=== PATIENT | male | born 1945 | race Caucasian/White ===

== ENCOUNTER → 2016-12-11 | Outpatient (CLI) | payer OTHER ==
[~2016-12-11] MED LIST: CALCTAB5 PO; CHOL2000 PO; CLR10 PO; LUTE15CA PO; METF750T PO; MULT-506 PO; OMEG10007 PO; OXYC1TAB3 PO; PRLSR20 PO
--- NOTE | 2016-12-11 10:27 | DIAGNOSTIC IMAGING REPORT ---
TWO VIEW CHEST CLINICAL HISTORY: Cough. FINDINGS: PA and lateral chest radiographs are compared to study dated 07/01/2014. The heart is enlarged. The pulmonary vasculature is noncongested. The lungs and pleural spaces are clear. There is no pneumothorax. The bony thorax appears intact. Degenerative changes noted throughout the thoracic spine. IMPRESSION: Cardiac enlargement with no active disease in the chest. Electronically signed by: Malik Ellsworth M.D. 12/11/2016 10:25 AM Dictated Date/Time: 12/11/2016 10:25 AM
== END | disposition home or self-care (01) ==
LOC: C.RAD1850 10:04
PROVIDERS: ATTEND Family Medicine
DX: R05 Cough (principal); I51.7 Cardiomegaly

== ENCOUNTER → 2016-12-19 | Outpatient (CLI) | payer OTHER ==
[2016-12-19 09:44] LABS: ALT/SGPT 27 U/L (12-78); AST/SGOT 13 U/L (15-37); BLOOD UREA NITROGEN 20 mg/dl (7-18); BUN/CREATININE RATIO 18.4 (10-20); CARBON DIOXIDE 32 mmol/L (21-32); CHLORIDE 106 mmol/L (98-107); GLUCOSE 95 mg/dl (70-99); POTASSIUM 4.4 mmol/L (3.5-5.1); SODIUM 141 mmol/L (136-145)
[2016-12-19 09:46] LABS: ALKALINE PHOSPHATASE 72 U/L (45-117); CHOLESTEROL 175 mg/dl (0-200); CHOLESTEROL/HDL RATIO 3.1; HDL CHOLESTEROL 56 mg/dl; LDL CHOLESTEROL CALCULATED 88 mg/dl; TRIGLYCERIDES 156 mg/dl (0-150); VERY LOW DENSITY LIPOPROT CALC 31 mg/dl
[2016-12-19 10:13] LABS: ESTIMATED AVERAGE GLUCOSE 126 mg/dl; HA1C FLAG Normal (Normal)
== END | disposition home or self-care (01) ==
LOC: C.LAB1850 07:26
PROVIDERS: ATTEND Internal Medicine
DX: N40.1 Benign prostatic hyperplasia with lower urinary tract symptoms (principal); E11.9 Type 2 diabetes mellitus without complications; Z11.59 Encounter for screening for other viral diseases

== ENCOUNTER → 2017-06-23 | Outpatient (CLI) | payer OTHER ==
[~2017-06-23] MED LIST changes: -OXYC1TAB3 PO
[2017-06-23 16:44] LABS: ALT/SGPT 25 U/L (12-78); BLOOD UREA NITROGEN 22 mg/dl (7-18); BUN/CREATININE RATIO 21.7 (10-20); CALCIUM 9.7 mg/dl (8.5-10.1); CARBON DIOXIDE 32 mmol/L (21-32); CHLORIDE 104 mmol/L (98-107); GLUCOSE 86 mg/dl (70-99); POTASSIUM 4.3 mmol/L (3.5-5.1); SODIUM 140 mmol/L (136-145)
[2017-06-23 16:54] LABS: ALB/GLOB RATIO 1.2 (0.9-2); ALKALINE PHOSPHATASE 69 U/L (45-117); AST/SGOT 20 U/L (15-37)
[2017-06-23 16:56] LABS: RATIO 10.5 mcg/mg (0-30.0)
[2017-06-24 07:11] LABS: ESTIMATED AVERAGE GLUCOSE 123 mg/dl; HA1C FLAG Normal (Normal)
--- NOTE | 2017-07-08 08:43 | CODING QUERY MEDICAL NECESSITY ---
CQSUPPORTING DIAGNOSIS NEEDED A supporting diagnosis is required for the test/procedure performed on this patient in order for us to be reimbursed by the patient's insurance. Please provide a supporting diagnosis for the following test/procedure listed below next to the test name along with your signature. *If there is no additional diagnosis for this patient that would support the following test/procedure please document that below next to the test/procedure. Test(s)/Procedure(s) that require a supporting diagnosis: DOS 06/23/17 VITAMIN B12 TEST Provider Signature: Date: Thank you Rosie Beltrán Health Information Management Once completed, please kindly fax back to [phone] For questions please call [phone]
== END | disposition home or self-care (01) ==
LOC: C.LAB1850 15:34
PROVIDERS: ATTEND Internal Medicine
DX: E11.9 Type 2 diabetes mellitus without complications (principal); E55.9 Vitamin D deficiency, unspecified; Z13.29 Encounter for screening for other suspected endocrine disorder

== ENCOUNTER → 2017-09-08 | Outpatient (CLI) | payer OTHER | END | disposition home or self-care (01) | LOC: C.MAMM 11:11 | PROVIDERS: ATTEND Internal Medicine | DX: M85.80 Other specified disorders of bone density and structure, unspecified site (principal) ==

== ENCOUNTER → 2017-12-04 | Outpatient (CLI) | payer OTHER ==
[2017-12-04 09:55] LABS: BLOOD UREA NITROGEN 23 mg/dl (7-18); CALCIUM 9.3 mg/dl (8.5-10.1); CARBON DIOXIDE 31 mmol/L (21-32); CHOLESTEROL 193 mg/dl (0-200); CREATININE 1.08 mg/dl (0.60-1.40); GLUCOSE 101 mg/dl (70-99); HEMOGLOBIN A1C 5.8 % (4.5-5.6); POTASSIUM 4.3 mmol/L (3.5-5.1); SODIUM 140 mmol/L (136-145)
[2017-12-04 10:00] LABS: LDL CHOLESTEROL CALCULATED 115 mg/dl
== END | disposition home or self-care (01) ==
LOC: C.LAB1850 07:34
PROVIDERS: ATTEND Urology
DX: Z12.5 Encounter for screening for malignant neoplasm of prostate (principal); E11.9 Type 2 diabetes mellitus without complications

== ENCOUNTER 2019-01-11 20:20 | Observation (INO) ==
[2019-01-11] MEDS ORDERED: METOPROLOL TARTRATE 1 MG/ML VIAL IV STA (20:35)
[2019-01-11] MEDS ORDERED: ASPIRIN CHEW 324 MG PO STA (20:36)
[2019-01-11] MEDS ORDERED: GI COCKTAIL ED USE PO ONE (20:36)
--- NOTE | 2019-01-11 20:50 | XRay Report ---
XR chest 1V portable CLINICAL HISTORY: 73 years-old Male presenting with weakness. TECHNIQUE: Portable upright AP view of the chest was obtained. COMPARISON: 10/20/2018. FINDINGS: Atherosclerosis of the aortic arch. Cardiac silhouette top normal in size. Minimal basilar opacities. No pleural effusion or pneumothorax. Degenerative changes of the thoracic spine. Upper abdomen irina l. IMPRESSION: 1. Minimal basilar opacities likely atelectasis or scarring. 2. Top normal cardiac size. Electronically signed by: Gabino Winn M.D. 01/11/2019 8:48 PM
[2019-01-11] MEDS ORDERED: SODIUM CHLORIDE 0.9% 1000ML 500 ML IV ONE (20:59)
[2019-01-11 21:15] LABS: BUN Creatinine Ratio 18.4 (10-20); Blood Urea Nitrogen 24 mg/dl (7-18); Calcium 9.6 mg/dl (8.5-10.1); Carbon Dioxide 29 mmol/L (21-32); Chloride 107 mmol/L (98-107); Creatinine Clr Calc Pharmacy 53.5 ml/min; Est GFR (African American) 64.4; Est GFR (Non-African American) 55.5; Glucose 117 mg/dl (70-99); Magnesium 2.1 mg/dl (1.8-2.4); Potassium 3.8 mmol/L (3.5-5.1); Sodium 142 mmol/L (136-145)
[2019-01-11 21:19] LABS: Basophils # (auto) 0.03 K/uL (0-0.2); Basophils % (auto) 0.3 %; Eosinophils # (auto) 0.18 K/uL (0-0.5); Hematocrit (blood only) 45.3 % (42-52); Hemoglobin 15.4 g/dL (14.0-18.0); Immature Granulocytes # (auto) 0.01 K/uL (0.00-0.02); Immature Granulocytes % (auto) 0.1 %; Lymphocytes # (auto) 3.19 K/uL (1.2-3.4); Lymphocytes % (auto) 36.1 %; Mean Corpuscular Volume 88.5 fL (80-100); Mean Platelet Volume 10.3 fL (7.4-10.4); Monocytes # (auto) 0.93 K/uL (0.11-0.59); Monocytes % (auto) 10.5 %; Neutrophils # (auto) 4.49 K/uL (1.4-6.5); Platelet Count 247 K/uL (130-400); RDW Standard Deviation 42.1 fL (36.4-46.3); Red Blood Count 5.12 M/uL (4.7-6.1); White Blood Count 8.83 K/uL (4.8-10.8)
[2019-01-11 21:25] LABS: Alanine Aminotransferase 40 U/L (12-78); Albumin Globulin Ratio 1.2 (0.9-2); Alkaline Phosphatase 87 U/L (45-117); Aspartate Aminotransferase 23 U/L (15-37); Bilirubin,Total 0.3 mg/dl (0.2-1); Globulin 3.5 gm/dl (2.5-4.0); Total Protein 7.5 gm/dl (6.4-8.2); Troponin I < 0.015 ng/ml (0-0.045)
[2019-01-11 22:08] LABS: Partial Thromboplastin Ratio 0.9; Partial Thromboplastin Time 25.5 Seconds (21.0-31.0); Prothrombin Time 10.3 Seconds (9.0-12.0)
[2019-01-11 22:43] LABS: Appearance Urine Clear (Clear); Bilirubin Urine Negative (Negative); Blood Urine Negative (Negative); Color Urine Yellow; Glucose Urine UA Negative (Negative); Ketones Urine Negative (Negative); Leukocyte Esterase Urine Negative (Negative); Nitrite Urine Negative (Negative); Protein Urine Negative (Negative); Specific Gravity Urine 1.021 (1.000-1.030); Urobilinogen Urine Negative (Negative)
--- NOTE | 2019-01-11 22:59 | History & Physical Report ---
Date of Service January 11, 2019 Assessment & Plan (1) Chest pain: Patient with acute onset bandlike chest discomfort at 19:15 tonight. Troponin x 1 negative. EKG with rate controlled atrial flutter with non- specific ST changes which resolved with conversion to sinus rhythm. ?Symptomatic flutter vs GI discomfort -Observation to PCU, continuous cardiac monitoring -Trend cardiac enzymes x 3 sets -EKG PRN CP -Stress test in AM Present on Admission?: Yes (2) Atrial flutter: Patient with newly diagnosed atrial flutter. Presented to ER in rate controlled flutter which converted to sinus bradycardia after administration of Metoprolol 5mg IV x 1 dose. ?symptomatic arrhythmia leading to CP and dizziness. Patient reports that since diagnosis he has only had 1 or 2 episodes of flutter associated with mild to moderate symptoms. -Observation as above -Continue Metoprolol XL 50mg po daily -Continue anticoagulation with Eliquis -Consider Cardiology consultation vs outpatient followup (3) Diabetes: Well controlled on Metformin -Hold Metformin while inpatient -ISS -CC diet after stress testing (4) GERD (gastroesophageal reflux disease): Chronic. -Continue Omeprazole -Maalox PRN F/E/N - NSS at 80mL/hr while NPO, monitor electrolytes and replete as needed, NPO after midnight for stress test, advance diet after stress testing Ppx - Eliquis anticoagulation. continue home Omeprazole Code - Full per discussion with patient Dispo - Observation to PCU History of Present Illness Chief Complaint: chest pain Primary Care Provider: Yanique Jaimes MD Mr. Elliott is a pleasant 73yo male with history of DM, recently diagnosed atrial flutter in October 2018 on Eliquis and Toprol XL presenting with chest pain. Patient reports that at 19:15 this evening he was sitting and watching TV when he experienced onset of band-like chest discomfort across the upper chest. Discomfort described as a tightness, 6-7/10 in severity, coming in waves. Pain non-exertional/non-positional and non-pleuritic. Associated with palpitations and feeling flush as well as a tight feeling in his esophagus. Mild dizziness experienced upon arrival to the ER. Denies shortness of breath, diaphoresis. Denies nausea/vomiting/abdominal pain. No additional complaints at this time. Patient was administered a GI cocktail in the ER with some improvement in sympt oms. Discomfort now 2/10. Upon arrival to the ER he was found to be in atrial flutter with variable block, rate of [address] depressions noted in anterior/lateral leads and TWI in inferior leads. Patient was administered Metoprolol 5mg IV with conversion to NSR and resolution of EKG changes. Patient is active and independent. He walks daily and denies exertional CP, tightness or dyspnea. He reports ending his walk early today as his legs felt heavy. He has never had an FL. No history of stress testing in the past. He follows with Dr. Ma ER course: ASA 162mg, Maalox, Metoprolol 5mg IV, NSS Allergies Allergy/AdvReac Type Severity Reaction Status Date / Time bee venom protein (honey bee) Allergy Unknown . Verified 01/11/19 22:19 mold Allergy Unknown itchy Unverified 01/11/19 22:19 watery eyes Dust Allergy Unknown itcy Uncoded 01/11/19 22:19 watery eyes Home Medications Home Medications Medication Instructions Recorded Confirmed Type calcium carbonate [Calcium 500] 500 mg PO DAILY 10/20/18 01/11/19 History cholecalciferol (vitamin D3) 1,000 unit PO DAILY 10/20/18 01/11/19 History [Vitamin D3] loratadine [Claritin] 10 mg PO DAILY 10/20/18 01/11/19 History lutein 6 mg PO DAILY 10/20/18 01/11/19 History metformin 750 mg PO DAILY 10/20/18 01/11/19 History multivitamin 1 tab PO DAILY 10/20/18 01/11/19 History omega [id number]-fish oil [Fish Oil] 1 tab PO DAILY 10/20/18 01/11/19 History omeprazole 20 mg PO DAILY 10/20/18 01/11/19 History apixaban [Eliquis] 5 mg PO BID 01/11/19 01/11/19 History epinephrine [EpiPen] 0.3 mg IM UD PRN 01/11/19 01/11/19 History metoprolol succinate [Toprol XL] 50 mg PO DAILY 01/11/19 01/11/19 History Past Med/Surg History Medical History Diabetes (Chronic) Atrial flutter Surgical History S/P hernia repair S/P shoulder surgery Family History Other Diabetes Gallbladder disease Heart disease Social History Preferred Language: Syriac Current Living Situation: Spouse current occupational status: retired Feels Safe at Home: Yes Smoking Status: Never smoker Hx Alcohol Use: No Hx Substance Use: No Review of Systems All systems reviewed & are unremarkable except as noted in HPI & below Physical Exam Vital Signs (Past 24 Hours): Last Vital Signs Temp 36.4 C L 01/11/19 20:24 Pulse 53 L 01/11/19 21:59 Resp 18 01/11/19 21:59 BP 123/81 01/11/19 21:59 Pulse Ox 95 01/11/19 21:59 Physical Exam: General: patient resting comfortably, NAD, non-toxic in appearance, AA&O x 4 Skin: warm, dry, intact, no rashes or lesions HEENT: NC/AT, PERRL, EOMI, anicteric sclera, conjunctiva without injection, external ear normal to inspection and nontender, nares patent, moist mucus membranes, dentition intact, no oropharyngeal lesions, neck supple, trachea midline, no LAD, no thyromegaly, no JVD Heart: +S1/S2, regular, bradycardic, no m/r/g, no carotid bruits, no chest wall tenderness Lungs: equal air entry bilaterally, no rales/rhonchi/wheezes Abd: +BS, soft, NT/ND, no masses/organomegaly/ascites Ext: warm, 2+ pulses in UE/LE bilaterally, no clubbing/cyanosis or edema Neuro: nonfocal, patient AA&O x 4, speech intact, no facial droop, moving all extremities on command with equal strength 5/5 Results & Data Laboratory Results Lab Results 01/11/19 01/11/19 01/11/19 Range/Units 20:38 20:38 20:38 WBC 8.83 (4.8-10.8) K/uL RBC 5.12 (4.7-6.1) M/uL Hgb 15.4 (14.0-18.0) g/dL Hct 45.3 (42-52) % MCV 88.5 (80-100) fL MCH 30.1 (25-34) pg MCHC 34.0 (32-36) g/dL RDW Std Deviation 42.1 (36.4-46.3) fL RDW Coeff of Jeremy 13.0 (11.5-14.5) % Plt Count 247 (130-400) K/uL MPV 10.3 (7.4-10.4) fL Immature Gran % (Auto) 0.1 % Neut % (Auto) 51.0 % Lymph % (Auto) 36.1 % [place] % (Auto) 10.5 % Eos % (Auto) 2.0 % Baso % (Auto) 0.3 % Immature Gran # (Auto) 0.01 (0.00-0.02) K/uL Neut # (Auto) 4.49 (1.4-6.5) K/uL Lymph # (Auto) 3.19 (1.2-3.4) K/uL [place] # (Auto) 0.93 H (0.11-0.59) K/uL Eos # (Auto) 0.18 (0-0.5) K/uL Baso # (Auto) 0.03 (0-0.2) K/uL PT 10.3 (9.0-12.0) Seconds INR 1.0 (0.9-1.1) APTT 25.5 (21.0-31.0) Seconds PTT Ratio 0.9 Sodium 142 (136-145) mmol/L Potassium 3.8 (3.5-5.1) mmol/L Chloride 107 (98-107) mmol/L Carbon Dioxide 29 (21-32) mmol/L Anion Gap 6.0 (3-11) BUN 24 H (7-18) mg/dl Creatinine 1.28 (0.6-1.4) mg/dl Est Cr Clr Drug Dosing 53.5 ml/min Est GFR ( Amer) 64.4 Est GFR (Non-Af Amer) 55.5 BUN/Creatinine Ratio 18.4 (10-20) Glucose 117 H (70-99) mg/dl Calcium 9.6 (8.5-10.1) mg/dl Magnesium 2.1 (1.8-2.4) mg/dl Total Bilirubin 0.3 (0.2-1) mg/dl AST 23 (15-37) U/L ALT 40 (12-78) U/L Alkaline Phosphatase 87 (45-117) U/L Troponin I < 0.015 (0-0.045) ng/ml Total Protein 7.5 (6.4-8.2) gm/dl Albumin 4.0 (3.4-5.0) gm/dl Globulin 3.5 (2.5-4.0) gm/dl Albumin/Globulin Ratio 1.2 (0.9-2) TSH 1.160 (0.300-4.500) uIu/ml Urine Color Urine Appearance (Clear) Urine pH (4.5-7.5) Ur Specific [place] (1.000-1.030) Urine Protein (Negative) Urine Glucose (UA) (Negative) Urine Ketones (Negative) Urine Blood (Negative) Urine Nitrite (Negative) Urine Bilirubin (Negative) Urine Urobilinogen (Negative) Ur Leukocyte Esterase (Negative) 01/11/19 Range/Units 22:25 WBC (4.8-10.8) K/uL RBC (4.7-6.1) M/uL Hgb (14.0-18.0) g/dL Hct (42-52) % MCV (80-100) fL MCH (25-34) pg MCHC (32-36) g/dL RDW Std Deviation (36.4-46.3) fL RDW Coeff of Jeremy (11.5-14.5) % Plt Count (130-400) K/uL MPV (7.4-10.4) fL Immature Gran % (Auto) % Neut % (Auto) % Lymph % (Auto) % [place] % (Auto) % Eos % (Auto) % Baso % (Auto) % Immature Gran # (Auto) (0.00-0.02) K/uL Neut # (Auto) (1.4-6.5) K/uL Lymph # (Auto) (1.2-3.4) K/uL [place] # (Auto) (0.11-0.59) K/uL Eos # (Auto) (0-0.5) K/uL Baso # (Auto) (0-0.2) K/uL PT (9.0-12.0) Seconds INR (0.9-1.1) APTT (21.0-31.0) Seconds PTT Ratio Sodium (136-145) mmol/L Potassium (3.5-5.1) mmol/L Chloride (98-107) mmol/L Carbon Dioxide (21-32) mmol/L Anion Gap (3-11) BUN (7-18) mg/dl Creatinine (0.6-1.4) mg/dl Est Cr Clr Drug Dosing ml/min Est GFR ( Amer) Est GFR (Non-Af Amer) BUN/Creatinine Ratio (10-20) Glucose (70-99) mg/dl Calcium (8.5-10.1) mg/dl Magnesium (1.8-2.4) mg/dl Total Bilirubin (0.2-1) mg/dl AST (15-37) U/L ALT (12-78) U/L Alkaline Phosphatase (45-117) U/L Troponin I (0-0.045) ng/ml Total Protein (6.4-8.2) gm/dl Albumin (3.4-5.0) gm/dl Globulin (2.5-4.0) gm/dl Albumin/Globulin Ratio (0.9-2) TSH (0.300-4.500) uIu/ml Urine Color Yellow Urine Appearance Clear (Clear) Urine pH 6.0 (4.5-7.5) Ur Specific [place] 1.021 (1.000-1.030) Urine Protein Negative (Negative) Urine Glucose (UA) Negative (Negative) Urine Ketones Negative (Negative) Urine Blood Negative (Negative) Urine Nitrite Negative (Negative) Urine Bilirubin Negative (Negative) Urine Urobilinogen Negative (Negative) Ur Leukocyte Esterase Negative (Negative) Diagnostic Findings XR chest 1V portable CLINICAL HISTORY: 73 years-old Male presenting with weakness. TECHNIQUE: Portable upright AP view of the chest was obtained. COMPARISON: 10/20/2018. FINDINGS: Atherosclerosis of the aortic arch. Cardiac silhouette top normal in size. Minimal basilar opacities. No pleural effusion or pneumothorax. Degenerative changes of the thoracic spine. Upper abdomen normal. IMPRESSION: 1. Minimal basilar opacities likely atelectasis or scarring. 2. Top normal cardiac size. Electronically signed by: Gabino Winn M.D. 01/11/2019 8:48 PM Dictated: 01/11/192046 Transcribed: 01/11/192046 ECG Additional Comments: Atrial flutter with variable block, rate 89bpm, non- specific ST-T wave changes Sinus bradycardia, no evidence of acute ischemia Code Status & VTE Plan Code Status full VTE Prophylaxis Plan VTE Prophylaxis will be ordered: Yes Critical Care Time Critical Care Time: No (1) Chest pain Chest pain type: unspecified Qualified Code(s): R07.9 - Chest pain, unspecified (2) Atrial flutter Atrial flutter type: unspecified Qualified Code(s): I48.92 - Unspecified atrial flutter (3) Diabetes Diabetes mellitus type: type 2 Diabetes mellitus termination clerk insulin use: without termination clerk use Diabetes mellitus complication status: without complication Qualified Code(s): E11.9 - Type 2 diabetes mellitus without complications (4) GERD (gastroesophageal reflux disease) Esophagitis presence: esophagitis presence not specified Qualified Code(s): K21.9 - Gastro-esophageal reflux disease without esophagitis
[2019-01-11] MEDS ORDERED: GLUCAGON FOR INJ 1 MG VIAL SQ PRN (23:38)
[2019-01-11] MEDS ORDERED: ACETAMINOPHEN 325 MG TAB PO PRN (23:38)
[2019-01-11] MEDS ORDERED: DEXTROSE 50% 50 ML SYRINGE IV PRN (23:38)
[2019-01-11] MEDS ORDERED: GLUCOSE 10 TABS/TUBE PO PRN (23:38)
[2019-01-11] MEDS ORDERED: DOCUSATE SODIUM 100 MG CAP PO PRN (23:38)
[2019-01-11] MEDS ORDERED: ONDANSETRON INJ 2 MG/ML 2 ML VIAL IV PRN (23:38)
[2019-01-11] MEDS ORDERED: ALUMINUM/MAGNESIUM SUSP 30 ML UDC PO PRN (23:38)
[2019-01-11] MEDS ORDERED: GLUCOSE 40% GEL 15 GM TUBE PO PRN (23:38)
[2019-01-11] MEDS ORDERED: CARBOHYDRATES FOR HYPOGLYCEMIA PO PRN (23:38)
[2019-01-11] MEDS ORDERED: NITROGLYCERIN SL 0.4 MG/TAB TAB SL PRN (23:38)
[2019-01-11] MEDS ORDERED: POLYETHYLENE (MIRALAX) 17 GM PACK PO PRN (23:38)
[2019-01-11] MEDS ORDERED: SODIUM CHLORIDE 0.45 % 1,000 ML IV SCH (23:45)
[2019-01-11 23:57] LABS: Phosphorus 2.4 mg/dl (2.5-4.9)
--- NOTE | 2019-01-12 01:59 | Emergency Department Note ---
Entered by Malik Valentine acting as a scribe for Gerardo Fair DO History of Present Illness General Chief complaint: Chest Pain Stated complaint: CHEST PAIN Time Seen by Provider: 01/11/19 20:32 Source: patient and family History of Present Illness Provider complaint: Chest pain Onset (ago): hour(s) 1 Location: chest Pain Consistency: + now resolved Maximum Pain Intensity: 6 Current Pain Intensity: 6 Relieved By: + none Associated symptoms: + denies other symptoms (pain/swelling in legs and abdomen pain) Treatments prior to arrival: none The patient is a 73 year old male who presents to the Emergency Room with complaints of chest pain that began 1 hour ago. The patient states he has a history of atrial fibrillation flutter that was diagnosed 3 months ago. He notes that this is the second episode. He states that he was sitting, relaxing at home when the chest pain began. He adds that the pain was across his chest but has since subsided. The patient rates his pain as a 6/10. The patient notes that he currently takes Metoprolol and Eliquis, both of which were added 3 months ago when he had his first episode of A fib. The patient denies ever having a stress test. He also denies any past heart attacks. The patient denies pain/swelling in legs and abdomen pain. He adds that he does not take aspirin or NG. Home Medications Home Medications Medication Instructions Recorded Confirmed Type calcium carbonate [Calcium 500] 500 mg PO DAILY 10/20/18 01/11/19 History cholecalciferol (vitamin D3) 1,000 unit PO DAILY 10/20/18 01/11/19 History [Vitamin D3] loratadine [Claritin] 10 mg PO DAILY 10/20/18 01/11/19 History lutein 6 mg PO DAILY 10/20/18 01/11/19 History metformin 750 mg PO DAILY 10/20/18 01/11/19 History multivitamin 1 tab PO DAILY 10/20/18 01/11/19 History omega 2-eng-kcs-fish oil [Fish Oil] 1 tab PO DAILY 10/20/18 01/11/19 History omeprazole 20 mg PO DAILY 10/20/18 01/11/19 History apixaban [Eliquis] 5 mg PO BID 01/11/19 01/11/19 History epinephrine [EpiPen] 0.3 mg IM UD PRN 01/11/19 01/11/19 History metoprolol succinate [Toprol XL] 50 mg PO DAILY 01/11/19 01/11/19 History Allergies Allergy/AdvReac Type Severity Reaction Status Date / Time bee venom protein (honey bee) Allergy Unknown . Verified 01/11/19 22:19 mold Allergy Unknown itchy Unverified 01/11/19 22:19 watery eyes Dust Allergy Unknown itcy Uncoded 01/11/19 22:19 watery eyes Past Med/Surg History Medical History Diabetes (Chronic) Atrial flutter Surgical History S/P hernia repair S/P shoulder surgery Family History Other Diabetes Gallbladder disease Heart disease Social History Preferred Language: [place] Communication Ability: Effective Beliefs That Will Affect Care: None Current Living Situation: Spouse current occupational status: retired Other Information That Helps Us Care for You: No Feels Safe at Home: Yes Safety Concerns: Feels Safe At This Time Smoking Status: Former smoker Hx Alcohol Use: Yes Hx Substance Use: No Review of Systems See HPI for pertinent positives & negatives. and A total of 10 systems reviewed and were otherwise negative Physical Exam Vital Signs Vital Signs - 24 hr 01/11/19 20:24 01/11/19 20:48 01/11/19 21:59 Temperature 36.4 C L Temperature Source Oral Sepsis Recent Fever Within 48 Hours No Sepsis New/Unexplained Change in Mental Status No Sepsis Action Taken by Nursing No Action Required Pulse Rate 73 79 Pulse Rate [Right Finger] 53 L Pulse Rhythm [Right Finger] Regular Pulse Strength [Right Finger] Normal Respiratory Rate 16 18 Respiratory Effort / Characteristics Non-Labored Spontaneous Non-Labored Respiratory Depth Normal Normal Respiratory Pattern Regular Blood Pressure 145/85 H 128/89 Blood Pressure [Left Arm] 123/81 Blood Pressure Mean 105 Blood Pressure Mean [Left Arm] 95 Blood Pressure Position [Left Arm] Lying Pulse Oximetry 97 95 Oxygen Delivery Method Room Air Room Air 01/11/19 23:01 01/11/19 23:51 01/12/19 03:40 Temperature 37.0 C 36.9 C Temperature Source Oral Oral Sepsis Recent Fever Within 48 Hours Sepsis New/Unexplained Change in Mental Status Sepsis Action Taken by Nursing Pulse Rate Pulse Rate [Right Finger] 51 L 50 L 44 L Pulse Rhythm [Right Finger] Regular Pulse Strength [Right Finger] Normal Respiratory Rate 18 18 17 Respiratory Effort / Characteristics Non-Labored Spontaneous Respiratory Depth Normal Normal Respiratory Pattern Regular Blood Pressure Blood Pressure [Left Arm] 108/47 L 127/67 114/62 Blood Pressure Mean Blood Pressure Mean [Left Arm] 67 87 79 Blood Pressure Position [Left Arm] Lying Pulse Oximetry 98 95 95 Oxygen Delivery Method Room Air 01/12/19 07:13 01/12/19 08:00 01/12/19 11:57 Temperature 36.7 C 37.4 C Temperature Source Oral Oral Sepsis Recent Fever Within 48 Hours Sepsis New/Unexplained Change in Mental Status Sepsis Action Taken by Nursing Pulse Rate 44 L Pulse Rate [Right Finger] 44 L 48 L Pulse Rhythm [Right Finger] Pulse Strength [Right Finger] Respiratory Rate 18 18 Respiratory Effort / Characteristics Respiratory Depth Respiratory Pattern Blood Pressure Blood Pressure [Left Arm] 133/70 137/72 Blood Pressure Mean Blood Pressure Mean [Left Arm] 91 93 Blood Pressure Position [Left Arm] Lying Lying Pulse Oximetry 96 96 Oxygen Delivery Method Room Air Room Air GENERAL: Patient is awake, alert, and in no acute distress.Patient is resting comfortably and showing no signs of anxiety EYES: The conjunctivae are clear. The pupils are round and reactive. EARS, NOSE, MOUTH AND THROAT: The nose is without any evidence of any deformity. Mucous membranes are moist.Tongue is midline NECK: The neck is nontender and supple. RESPIRATORY: Normal respiratory effort is noted. There is no evidence of wheezing rhonchi or rales to auscultation. CARDIOVASCULAR: Regular rate and rhythm noted. There no murmurs rubs or gallops normal S1 normal S2 GASTROINTESTINAL: The abdomen is soft. Bowel sounds are present in all quadrants. Abdomen is nontender. MUSCULOSKELETAL/EXTREMITIES: There is no evidence of gross deformity. Full range of motion is noted in the hips and shoulders. SKIN: There is no obvious evidence of any rash. There are no petechiae, pallor or cyanosis noted. NEUROLOGIC: Patient is awake alert and oriented x3. Course 2032: The patient was evaluated in room A02, and a complete history and physical examination were performed. 2155: I reviewed the patient's case with Dr. Marquis-Hospitalist. She will evaluate the patient for further management. Administered Medications Apixaban (Eliquis) 5 mg PO BID SAFIA Stop: 02/11/19 08:59 Last Admin: 01/12/19 08:40 Dose: 5 mg Documented by: [id number] Calcium Carbonate (Os-[place]roy 500) 1,250 mg PO DAILY SAFIA Stop: 02/11/19 08:59 Last Admin: 01/12/19 08:40 Dose: 1,250 mg Documented by: [id number] Insulin Aspart (Novolog Flexpen) 0 units SC ACHS SAFIA Stop: 02/11/19 07:29 Last Admin: 01/12/19 06:06 Dose: Not Given Documented by: [id number] Cosigned by: [id number] Loratadine (Claritin) 10 mg PO DAILY SAFIA Stop: 02/11/19 08:59 Last Admin: 01/12/19 08:40 Dose: 10 mg Documented by: [id number] Metoprolol Succinate (Toprol Xl) 50 mg PO QAM SAFIA Stop: 02/11/19 08:59 Last Admin: 01/12/19 08:41 Dose: Not Given Documented by: [id number] Pantoprazole Sodium (Protonix) 40 mg PO DAILY SAFIA Stop: 02/11/19 08:59 Last Admin: 01/12/19 08:40 Dose: 40 mg Documented by: [id number] Vitamin D (Vitamin D3) 1,000 units PO DAILY SAFIA Stop: 02/11/19 08:59 Last Admin: 01/12/19 08:40 Dose: 1,000 units Documented by: [id number] Discontinued Medications Al Hydrox/Mg Hydrox/Simethicone () 1 dose PO ONE ONE Stop: 01/11/19 20:37 Last Admin: 01/11/19 20:48 Dose: 1 dose Documented by: [id number] Aspirin (Aspirin) 162 mg PO NOW STA Stop: 01/11/19 20:37 Last Admin: 01/11/19 20:47 Dose: 162 mg Documented by: [id number] Sodium Chloride (Nss 1000ml) 500 mls @ 999 mls/hr IV .Q31M ONE Stop: 01/11/19 21:29 Last Infusion: 01/11/19 21:59 Dose: 0 mls/hr Documented by: [id number] Admin: 01/11/19 21:00 Dose: 999 mls/hr Documented by: [id number] Sodium Chloride (1/2 Nss) 1,000 mls @ 80 mls/hr IV .[id number] SAFIA Stop: 01/12/19 12:14 Last Infusion: 01/12/19 10:52 Dose: 0 mls/hr Documented by: [id number] Admin: 01/12/19 00:00 Dose: 80 mls/hr Documented by: [id number] Metoprolol Tartrate (Lopressor) 5 mg IV NOW STA Stop: 01/11/19 20:36 Last Admin: 01/11/19 20:48 Dose: 5 mg Documented by: [id number] Medical Decision Making Differential Diagnosis Differential diagnosis: Etiologies such as cardiac ischemia, aortic dissection, pulmonary embolism, pneumonia, pneumothorax, musculoskeletal, infections, pericarditis, myocarditis, esophageal rupture, gastrointestinal, as well as others were entertained. Medical Records Attestation: I reviewed the patient's medical records. Home Medications Current Medication List: was personally reviewed by me Laboratory Data Attestation: I reviewed the patient's lab results. Result diagrams: 01/12/19 06:44 01/12/19 06:44 Lab Results 01/11/19 01/11/19 01/11/19 Range/Units 20:38 20:38 20:38 WBC 8.83 (4.8-10.8) K/uL RBC 5.12 (4.7-6.1) M/uL Hgb 15.4 (14.0-18.0) g/dL Hct 45.3 (42-52) % MCV 88.5 (80-100) fL MCH 30.1 (25-34) pg MCHC 34.0 (32-36) g/dL RDW Std Deviation 42.1 (36.4-46.3) fL RDW Coeff of Jeremy 13.0 (11.5-14.5) % Plt Count 247 (130-400) K/uL MPV 10.3 (7.4-10.4) fL Immature Gran % (Auto) 0.1 % Neut % (Auto) 51.0 % Lymph % (Auto) 36.1 % Isabella % (Auto) 10.5 % Eos % (Auto) 2.0 % Baso % (Auto) 0.3 % Immature Gran # (Auto) 0.01 (0.00-0.02) K/uL Neut # (Auto) 4.49 (1.4-6.5) K/uL Lymph # (Auto) 3.19 (1.2-3.4) K/uL Isabella # (Auto) 0.93 H (0.11-0.59) K/uL Eos # (Auto) 0.18 (0-0.5) K/uL Baso # (Auto) 0.03 (0-0.2) K/uL PT 10.3 (9.0-12.0) Seconds INR 1.0 (0.9-1.1) APTT 25.5 (21.0-31.0) Seconds PTT Ratio 0.9 Sodium 142 (136-145) mmol/L Potassium 3.8 (3.5-5.1) mmol/L Chloride 107 (98-107) mmol/L Carbon Dioxide 29 (21-32) mmol/L Anion Gap 6.0 (3-11) BUN 24 H (7-18) mg/dl Creatinine 1.28 (0.6-1.4) mg/dl Est Cr Clr Drug Dosing 53.5 ml/min Est GFR ( Amer) 64.4 Est GFR (Non-Af Amer) 55.5 BUN/Creatinine Ratio 18.4 (10-20) Glucose 117 H (70-99) mg/dl POC Glucose (70-99) Calcium 9.6 (8.5-10.1) mg/dl Phosphorus 2.4 L (2.5-4.9) mg/dl Magnesium 2.1 (1.8-2.4) mg/dl Total Bilirubin 0.3 (0.2-1) mg/dl AST 23 (15-37) U/L ALT 40 (12-78) U/L Alkaline Phosphatase 87 (45-117) U/L Troponin I < 0.015 (0-0.045) ng/ml Total Protein 7.5 (6.4-8.2) gm/dl Albumin 4.0 (3.4-5.0) gm/dl Globulin 3.5 (2.5-4.0) gm/dl Albumin/Globulin Ratio 1.2 (0.9-2) TSH 1.160 (0.300-4.500) uIu/ml Urine Color Urine Appearance (Clear) Urine pH (4.5-7.5) Ur Specific Stewart (1.000-1.030) Urine Protein (Negative) Urine Glucose (UA) (Negative) Urine Ketones (Negative) Urine Blood (Negative) Urine Nitrite (Negative) Urine Bilirubin (Negative) Urine Urobilinogen (Negative) Ur Leukocyte Esterase (Negative) 01/11/19 01/12/19 01/12/19 Range/Units 22:25 06:03 06:44 WBC 5.88 (4.8-10.8) K/uL RBC 4.63 L (4.7-6.1) M/uL Hgb 13.7 L (14.0-18.0) g/dL Hct 41.0 L (42-52) % MCV 88.6 (80-100) fL MCH 29.6 (25-34) pg MCHC 33.4 (32-36) g/dL RDW Std Deviation 43.2 (36.4-46.3) fL RDW Coeff of Jeremy 13.4 (11.5-14.5) % Plt Count 201 (130-400) K/uL MPV 9.7 (7.4-10.4) fL Immature Gran % (Auto) 0.3 % Neut % (Auto) 41.0 % Lymph % (Auto) 44.7 % Isabella % (Auto) 11.2 % Eos % (Auto) 2.6 % Baso % (Auto) 0.2 % Immature Gran # (Auto) 0.02 (0.00-0.02) K/uL Neut # (Auto) 2.41 (1.4-6.5) K/uL Lymph # (Auto) 2.63 (1.2-3.4) K/uL Isabella # (Auto) 0.66 H (0.11-0.59) K/uL Eos # (Auto) 0.15 (0-0.5) K/uL Baso # (Auto) 0.01 (0-0.2) K/uL PT (9.0-12.0) Seconds INR (0.9-1.1) APTT (21.0-31.0) Seconds PTT Ratio Sodium (136-145) mmol/L Potassium (3.5-5.1) mmol/L Chloride (98-107) mmol/L Carbon Dioxide (21-32) mmol/L Anion Gap (3-11) BUN (7-18) mg/dl Creatinine (0.6-1.4) mg/dl Est Cr Clr Drug Dosing ml/min Est GFR ( Amer) Est GFR (Non-Af Amer) BUN/Creatinine Ratio (10-20) Glucose (70-99) mg/dl POC Glucose 93 (70-99) Calcium (8.5-10.1) mg/dl Phosphorus (2.5-4.9) mg/dl Magnesium (1.8-2.4) mg/dl Total Bilirubin (0.2-1) mg/dl AST (15-37) U/L ALT (12-78) U/L Alkaline Phosphatase (45-117) U/L Troponin I (0-0.045) ng/ml Total Protein (6.4-8.2) gm/dl Albumin (3.4-5.0) gm/dl Globulin (2.5-4.0) gm/dl Albumin/Globulin Ratio (0.9-2) TSH (0.300-4.500) uIu/ml Urine Color Yellow Urine Appearance Clear (Clear) Urine pH 6.0 (4.5-7.5) Ur Specific Stewart 1.021 (1.000-1.030) Urine Protein Negative (Negative) Urine Glucose (UA) Negative (Negative) Urine Ketones Negative (Negative) Urine Blood Negative (Negative) Urine Nitrite Negative (Negative) Urine Bilirubin Negative (Negative) Urine Urobilinogen Negative (Negative) Ur Leukocyte Esterase Negative (Negative) 01/12/19 01/12/19 Range/Units 06:44 10:52 WBC (4.8-10.8) K/uL RBC (4.7-6.1) M/uL Hgb (14.0-18.0) g/dL Hct (42-52) % MCV (80-100) fL MCH (25-34) pg MCHC (32-36) g/dL RDW Std Deviation (36.4-46.3) fL RDW Coeff of Jeremy (11.5-14.5) % Plt Count (130-400) K/uL MPV (7.4-10.4) fL Immature Gran % (Auto) % Neut % (Auto) % Lymph % (Auto) % Isabella % (Auto) % Eos % (Auto) % Baso % (Auto) % Immature Gran # (Auto) (0.00-0.02) K/uL Neut # (Auto) (1.4-6.5) K/uL Lymph # (Auto) (1.2-3.4) K/uL Isabella # (Auto) (0.11-0.59) K/uL Eos # (Auto) (0-0.5) K/uL Baso # (Auto) (0-0.2) K/uL PT (9.0-12.0) Seconds INR (0.9-1.1) APTT (21.0-31.0) Seconds PTT Ratio Sodium 142 (136-145) mmol/L Potassium 4.4 D (3.5-5.1) mmol/L Chloride 111 H (98-107) mmol/L Carbon Dioxide 29 (21-32) mmol/L Anion Gap 2.0 L (3-11) BUN 21 H (7-18) mg/dl Creatinine 1.08 (0.6-1.4) mg/dl Est Cr Clr Drug Dosing 65.8 ml/min Est GFR ( Amer) 79.1 Est GFR (Non-Af Amer) 68.2 BUN/Creatinine Ratio 19.7 (10-20) Glucose 97 (70-99) mg/dl POC Glucose 100 H (70-99) Calcium 8.6 (8.5-10.1) mg/dl Phosphorus (2.5-4.9) mg/dl Magnesium (1.8-2.4) mg/dl Total Bilirubin (0.2-1) mg/dl AST (15-37) U/L ALT (12-78) U/L Alkaline Phosphatase (45-117) U/L Troponin I < 0.015 (0-0.045) ng/ml Total Protein (6.4-8.2) gm/dl Albumin (3.4-5.0) gm/dl Globulin (2.5-4.0) gm/dl Albumin/Globulin Ratio (0.9-2) TSH (0.300-4.500) uIu/ml Urine Color Urine Appearance (Clear) Urine pH (4.5-7.5) Ur Specific Stewart (1.000-1.030) Urine Protein (Negative) Urine Glucose (UA) (Negative) Urine Ketones (Negative) Urine Blood (Negative) Urine Nitrite (Negative) Urine Bilirubin (Negative) Urine Urobilinogen (Negative) Ur Leukocyte Esterase (Negative) Imaging Data Radiologist's Impression: Radiology results as stated below per my review and the radiologist's interpretation: XR chest 1V portable CLINICAL HISTORY: 73 years-old Male presenting with weakness. TECHNIQUE: Portable upright AP view of the chest was obtained. COMPARISON: 10/20/2018. FINDINGS: Atherosclerosis of the aortic arch. Cardiac silhouette top normal in size. Minimal basilar opacities. No pleural effusion or pneumothorax. Degenerative changes of the thoracic spine. Upper abdomen normal. IMPRESSION: 1. Minimal basilar opacities likely atelectasis or scarring. 2. Top normal cardiac size. Electronically signed by: Gabino Winn M.D. 01/11/2019 8:48 PM ECG Data Attestation: I personally reviewed and interpreted this ECG as follows: Indication: chest pain Rhythm: atrial flutter Findings: + ST depression (lateral); no PAC, no PVC and no ectopy Comparison ECG Date: from (10/20/18) Change: the following changes noted (all new) Additional Comments: Repeat EKG: NSR 65, PACs noted, resolution of previously noted ST depressions Blood Pressure Blood Pressure Findings: Normal blood pressure MDM Narrative The patient is a 73-year-old male who presented to the emergency department for an evaluation of chest pain. The patient also had atrial fibrillation upon arrival to the emergency department. He was very symptomatic with his atrial fibrillation and had ST segment abnormalities. I discussed the patient's laboratory and radiographic studies with him. He did take his oral anticoagulation therapy while in the emergency department. He was also treated with aspirin and Lopressor in the emergency department. On subsequent reevaluation he was in sinus rhythm and his ST segment abnormalities resolved. I discussed the patient's laboratory and radiographic studies with the on-call [facility] hospitalist group. They have agreed to evaluate the patient in the emergency department for further management and disposition. Impression & Plan Chest pain, Atrial flutter, Abnormal ECG Discharge Plan Visit Data *Final* Discharge Date/Time: 01/11/19 23:20 Chief Complaint: Chest Pain Stated Complaint: CHEST PAIN ED Provider: Gerardo Fair Discharge Problem: Chest pain, Atrial flutter, Abnormal ECG Patient Disposition: Admitted As Inpatient Discharge Instructions Interventions: ED Discharge Assessment Last Done: 01/11/19 23:20 Discharge Problem: Chest pain Qualifiers: Chest pain type: unspecified Qualified Code(s): R07.9 - Chest pain, unspecified Atrial flutter Qualifiers: Atrial flutter type: typical Qualified Code(s): I48.3 - Typical atrial flutter The scribe's documentation has been prepared under my direction and personally reviewed by me in its entirety. I confirm that the note above accurately reflects all work, treatment, procedures, and medical decision making performed by me.
[2019-01-12] MEDS: INSULIN ASPART 100 UNITS/ML 3 ML PEN SC SCH ×2 (06:06→13:32)
[2019-01-12 07:03] LABS: Basophils # (auto) 0.01 K/uL (0-0.2); Basophils % (auto) 0.2 %; Eosinophils # (auto) 0.15 K/uL (0-0.5); Eosinophils % (auto) 2.6 %; Hemoglobin 13.7 g/dL (14.0-18.0); Immature Granulocytes # (auto) 0.02 K/uL (0.00-0.02); Immature Granulocytes % (auto) 0.3 %; Lymphocytes # (auto) 2.63 K/uL (1.2-3.4); Lymphocytes % (auto) 44.7 %; Mean Corpuscular Hgb Conc 33.4 g/dL (32-36); Mean Corpuscular Volume 88.6 fL (80-100); Mean Platelet Volume 9.7 fL (7.4-10.4); Monocytes # (auto) 0.66 K/uL (0.11-0.59); Monocytes % (auto) 11.2 %; Neutrophils # (auto) 2.41 K/uL (1.4-6.5); Platelet Count 201 K/uL (130-400); RDW Coefficient of Variation 13.4 % (11.5-14.5); RDW Standard Deviation 43.2 fL (36.4-46.3); Red Blood Count 4.63 M/uL (4.7-6.1); White Blood Count 5.88 K/uL (4.8-10.8)
[2019-01-12 07:24] LABS: BUN Creatinine Ratio 19.7 (10-20); Blood Urea Nitrogen 21 mg/dl (7-18); Calcium 8.6 mg/dl (8.5-10.1); Carbon Dioxide 29 mmol/L (21-32); Chloride 111 mmol/L (98-107); Creatinine Clr Calc Pharmacy 65.8 ml/min; Est GFR (African American) 79.1; Est GFR (Non-African American) 68.2; Glucose 97 mg/dl (70-99); Potassium 4.4 mmol/L (3.5-5.1); Sodium 142 mmol/L (136-145)
[2019-01-12 07:27] LABS: Troponin I < 0.015 ng/ml (0-0.045)
[2019-01-12] MEDS ORDERED: PANTOprazole 40 MG TAB PO SCH (09:00)
[2019-01-12] MEDS ORDERED: CALCIUM CARBONATE 1250MG TAB PO SCH ×2 (09:00)
[2019-01-12] MEDS ORDERED: LORATADINE 10 MG TAB PO SCH (09:00)
[2019-01-12] MEDS ORDERED: METOPROLOL SUCC 50MG EXT REL TAB PO SCH (09:00)
[2019-01-12] MEDS ORDERED: CHOLECALCIFEROL 1,000 UNITS TAB PO SCH (09:00)
[2019-01-12] MEDS ORDERED: APIXABAN 5 MG TABLET PO SCH (09:00)
--- NOTE | 2019-01-12 18:37 | Discharge Summary ---
Date of Service January 12, 2019 Admission HPI Per Admitting Provider Mr. Elliott is a pleasant 73yo male with history of DM, recently diagnosed atrial flutter in October 2018 on Eliquis and Toprol XL presenting with chest pain. Patient reports that at 19:15 this evening he was sitting and watching TV when he experienced onset of band-like chest discomfort across the upper chest. Discomfort described as a tightness, 6-7/10 in severity, coming in waves. Pain non-exertional/non-positional and non-pleuritic. Associated with palpitations and feeling flush as well as a tight feeling in his esophagus. Mild dizziness experienced upon arrival to the ER. Denies shortness of breath, diaphoresis. Denies nausea/vomiting/abdominal pain. No additional complaints at this time. Patient was administered a GI cocktail in the ER with some improvement in symptoms. Discomfort now 2/10. Upon arrival to the ER he was found to be in atrial flutter with variable block, rate of [address] depressions noted in anterior/lateral leads and TWI in inferior leads. Patient was administered Metoprolol 5mg IV with conversion to NSR and resolution of EKG changes. Patient is active and independent. He walks daily and denies exertional CP, tightness or dyspnea. He reports ending his walk early today as his legs felt heavy. He has never had an ME. No history of stress testing in the past. He follows with Dr. Ma ER course: ASA 162mg, Maalox, Metoprolol 5mg IV, NSS Principal Diagnosis Chest pain; not due to cardiac cause Discharge Exam Constitutional WD/WN, vitals as above Eyes EOM intact bilaterally; no conjunctival abnormality ENMT external ear and nose normal, oropharynx normal Neck trachea midline, no thyromegaly normal visual inspection Respiratory normal respiratory effort, lungs clear to auscultation no respiratory distress Cardiovascular RRR, no murmur, no edema Gastrointestinal (Abdomen) Inspection/Auscultation: abdomen normal to inspection; abdomen not distended Musculoskeletal no cyanosis or clubbing, extremities motor strength 5/5 Skin no rashes, warm and dry Neurologic moves all extremities and awake Psychiatric Orientation: alert, oriented to person and cooperative Discharge Data Allergies Allergy/AdvReac Type Severity Reaction Status Date / Time bee venom protein (honey bee) Allergy Unknown . Verified 01/11/19 22:19 mold Allergy Unknown itchy Unverified 01/11/19 22:19 watery eyes Dust Allergy Unknown itcy Uncoded 01/11/19 22:19 watery eyes Consultations 01/11/19 21:50 ED Decision to Admit Stat Hospital Course (1) Chest pain: Patient with acute onset bandlike chest discomfort at 19:15 on 01/11. - Troponins all negative. - EKG showed rate-controlled atrial flutter with non-specific ST changes which resolved with conversion to sinus rhythm. - Stress echo on 01/12 was negative for ischemia. Per cardiology, his heart rate was not met, but he did very well and had high exercise tolerance. - Possibly symptomatic atrial flutter (even with appropriate rate control). - Follow up with Dr. Arias in 1 week. Consider rythm control if these episodes continue. (2) Atrial flutter: Patient with newly diagnosed atrial flutter. Presented to ER in rate controlled flutter which converted to sinus bradycardia after administration of Metoprolol 5mg IV x 1 dose. Possible symptomatic arrhythmia leading to CP and dizziness. Patient reports that since diagnosis he has only had 1 or 2 episodes of flutter associated with mild to moderate symptoms. - As above (3) Diabetes: Well controlled on Metformin -Hold Metformin while inpatient -ISS -CC diet after stress testing (4) GERD (gastroesophageal reflux disease): Chronic. -Continue Omeprazole -Maalox PRN Total Time Total Time Spent Total Time Spent (In Minutes): 40 Total Time Includes: Examination of the Patient, Discharge Planning and Medication Reconciliation Discharge Plan Discharge Items Patient Disposition: Home - Self-Care Reason For Visit: CHEST PAIN Discharge Diagnosis: Chest pain; unlikely cardiac chest pain Discharge Goals: Decrease discomfort Activity: Resume your previous activity Non-emergency contact: Primary Care Provider and Machine Pecan Gatherer Call non-emergency contact if: you have any medication questions and your symptoms worsen Follow-up/Referrals: Toby Arias MD [Physician] - (Please see Dr. Arias or Mr. Beauchamp in the office in 1-2 weeks for follow up.) Yanique Jaimes MD [Primary Care Provider] - 01/18/19 11:40 am (Please, follow up with Dr. Hernandez on ThursdayJanuary 18 at 11:40 am. *If you need to change this appointment, call the office at [phone].) Diet: Regular Addtl Provider Instructions: Mr. Elliott, You were admitted to the hospital with chest pain. We will concerned that the chest pain represented lack of blood flow to the heart, and we did testing to check on the health of your heart. We tested a lab called a "troponin" which tells us if your heart has lack of blood flow or getting damaged. All your troponins were negative (normal) which means you did not have a heart attack. You underwent a stress test while in the hospital, and this was normal as well. This tells us that you are at low risk for having a heart attack in the next month or year. Your chest pain may be due to a number of other factors, including problems with her esophagus, or even musculoskeletal pain from your ribs. Please follow-up with Dr. Arias's office in 1-2 weeks to determine if there is any further cardiac testing you need to undergo. Please follow-up with your PCP in the next week to determine if there is any further GI workup that needs to be done. Please contact your PCP, the accounting software specialist, or come straight to the emergency room if you have any further chest pain, shortness of breath, lightheadedness, dizziness, or other concerning symptoms. Prescriptions: Continued multivitamin Tablet 1 tab PO DAILY RF: 0 calcium carbonate [Calcium 500] 500 mg calcium (1,250 mg) Tablet 500 mg PO DAILY RF: 0 lutein 6 mg Capsule 6 mg PO DAILY RF: 0 omeprazole 20 mg Capsule,Delayed Release(Dr/Ec) 20 mg PO DAILY RF: 0 loratadine [Claritin] 10 mg Tablet 10 mg PO DAILY RF: 0 cholecalciferol (vitamin D3) [Vitamin D3] 1,000 unit Capsule 1,000 unit PO DAILY RF: 0 metformin 750 mg tablet extended release 24 hr 750 mg PO DAILY RF: 0 omega [id number] oil [Fish Oil] 1,000 mg (120 mg-180 mg) Capsule 1 tab PO DAILY RF: 0 metoprolol succinate [Toprol XL] 50 mg tablet extended release 24 hr 50 mg PO DAILY RF: 0 Eliquis 5 mg tablet 5 mg PO BID RF: 0 epinephrine [EpiPen] 0.3 mg/0.3 mL Auto-Injector 0.3 mg IM UD PRN (Reason: Allergic Reaction) RF: 0 Stand-Alone Forms: Call Back Authorization, [facility] Discharge Orders: Discharge Order (Routine); Ordered 01/12/19 Ordered By: Shon Webb Admission Data Admit Date/Time: 01/11/19 22:35 Attending Provider: Shon Webb Admit Provider: Juju Marquis Primary Care Provider: Yanique Jaimes V. Other Providers: Shon Webb Service: Telemetry Other Interventions: Discharge Summary Assessment (RN) Last Done: 01/12/19 14:29 DC Date/Time DO NOT enter until pt leaves facility: 01/12/19 14:53
== END 2019-01-12 14:53 | disposition home or self-care (01) ==
LOC: ED 20:20 → 2S 20:20 → SUATTDRO 22:35 → 2S 23:20

== ENCOUNTER 2019-08-16 10:57 | Observation (INO) ==
[2019-08-16] MEDS ORDERED: fentaNYL citrate 100 MCG/2 ML VIAL ONE ×2 (12:36→13:58)
[2019-08-16] MEDS ORDERED: MIDAZOLAM HCL 5 MG/ML 1 ML VIAL ONE (12:36)
--- NOTE | 2019-08-16 12:57 | History & Physical Bridge Note ---
Date of Service August 16, 2019 History & Physical Bridge Note I have examined the patient, reviewed the History & Physical and in the interval since the performance of the History & Physical I have noted the following changes of clinical significance: After his aborted ablation procedure July 28, 2019 when he presented with neurologic symptoms he had a MRI of the brain and a CT angiogram of the neck and head, all of which were negative for stroke or significant atherosclerosis. The symptoms are still present to minor extent but have improved. He has had one other episode of palpitations (not documented) since that time. I reviewed the indications, procedure, risks and alternatives of electrophysiology study and flutter ablation with him and his and they understand and he agrees to proceed. Consent obtained. I also discussed sedation with him and he is agreeable. Consent obtained.
--- NOTE | 2019-08-16 12:58 | Pre Anesthesia Assessment ---
Date of Service August 16, 2019 Pre Sedation Assessment Vital Signs Temp Pulse Resp BP Pulse Ox 08/16/19 11:09 36.5 C 50 L 16 161/68 H 98 Cardiovascular RRR, no murmur, no edema Respiratory normal respiratory effort, lungs clear to auscultation Pre-Sedation Airway Assessment Smoking Status: Former smoker Hx Sleep Apnea: No Hx Difficult Intubation: No Short, Thick Neck: No Thyromental Distance: > or= 3.5 Finger Breadths Oral Cavity: + WNL Mallampati Class: I ASA: ASA3 NPO Status Date of Last Intake of Fluids: 08/15/19 Time of Last Intake of Fluids: 22:30 Date of Last Intake of Solid Food: 08/15/19 Time of Last Intake of Solid Foods: 22:30 Procedure Planning Contraindications for Sedation: none Current Medications Reviewed: Yes Notes The planned sedation has been discussed with the patient. Informed Consent was obtained. I have identified the patient, determined the appropriateness of sedation and have assessed the patient immediately prior to the procedure. All medicine(s) and interventions are by my order.
--- NOTE | 2019-08-16 15:00 | Post Operative Brief Note ---
Cardiology Brief Post Op Date of Surgery August 16, 2019 Pre & Post Diagnosis Operation Date: 08/16/19 12:00 Preop diagnosis: Typical atrial flutter Postoperative diagnosis: Same Procedure Electrophysiologic study including coronary sinus (left atrial) pacing 3D mapping for atrial flutter Ablation of atrial flutter with creation of a tricuspid-caval isthmus line Lead Systems Engineer Toby Arias MD Pipe Coremaker None Estimated Blood Loss 10 Findings Consistent with Post-Op Diagnosis Successful creation of a tricuspid caval isthmus line with no evidence of electrical conduction across the line at the termination of the procedure. Anesthesia Type Local Complications none Disposition Accompanied Patient To Recovery: Yes Disposition: [place] [facility] [place] Charge Electrophysiology Procedure 1: Electrophysiology: Comprehensive EP Evaluation L Atrial pacing Procedure 2: Electrophysiology: EP 3D Mapping Procedure 3: Electrophysiology: EP Comprehensive Eval w/ablation of AV pathway (Ablation of atrial flutter with creation of a tricuspid-caval isthmus line)
[2019-08-16] MEDS ORDERED: ACETAMINOPHEN 325 MG TAB PO PRN (15:04)
[2019-08-16] MEDS ORDERED: KETOROLAC TROMETHAMINE 10 MG TABLET PO PRN (15:04)
--- NOTE | 2019-08-16 15:27 | Operative Report ---
PG Post Operative Report Pre & Post Diagnosis Operation Date: 08/16/19 12:00 <No data on this case meets the specified criteria> I identified the patient and participated in the time-out.: Yes Procedure Operation Date: 08/16/19 12:00 Actual Procedures p EPS + Ablation for SVT Flutter - Toby Arias MD s 3D Mapping (Carto) - Toby Arias MD Surgeon Toby Arias MD [employer] None Estimated Blood Loss 10 Findings Consistent with Post-Op Diagnosis Specimens None Anesthesia Type Local Complications none Disposition Accompanied Patient To Recovery: Yes Disposition: PCU Description of Procedure The patient was brought to the electrophysiology laboratory in sinus rhythm. He was identified in the lab, he was connected to the recording apparatus including the 3D mapping system. He was sedated and the right groin was anesthetized with lidocaine local anesthetic. A 7 Rwandan introducer, a 6 Rwandan introducer and a SR 0 ablation sheath were placed in the right femoral vein. A quadripolar catheter was advanced into the coronary sinus, another quadripolar catheter was placed in the right ventricular apex and an 8 mm ablation catheter was advanced to position at the AV junction. Baseline measurements were performed. Intervals across the tricuspid isthmus were measured for future comparison, intervals were measured from the coronary sinus catheter to the ablation catheter located along the tricuspid annulus on the right side of the future ablation line. Measurements and rate in both directions, from the coronary sinus to the ablation catheter the interval was 99 ms, from the ablation catheter to the coronary sinus catheter the interval was 94 ms indicating good bidirectional conduction across the isthmus. The tricuspid isthmus was then mapped for anatomic locations, and ablation was performed using a thermistor tipped 8 mm catheter. 2 ablation lines were performed for a total of 908 seconds (about 15 minutes). Based on electrogram and temperature data it appeared to be successful. Measurements were again taken from the coronary sinus to the ablation catheter repositioned on the right side of the tricuspid isthmus line. Measurements were made immediately after creation of this line and half an hour later with no significant difference. At the 1/2-hour post ablation time the time from the coronary sinus to the ablation catheter was 172 ms and from the ablation catheter to the coronary sinus was 172 ms. Electrophysiologic measurements were also performed during the waiting period after the ablation. AV block occurred at an atrial paced cycle length of 350 ms, the AV patrick ERP at 600 ms was 300 ms, the VA block occurred at a ventricular paced cycle length of 500 ms. The AH interval was 83 ms and HV interval 50 ms. The catheters were removed and hemostasis obtained by firm pressure at the puncture site. He tolerated the procedure well, there were no complications. I attest to the content of the Intraoperative Record and any orders documented therein. Any exceptions are noted below.
--- NOTE | 2019-08-16 16:21 | Post Anesthesia Assessment ---
Date of Service August 16, 2019 Post Sedation Assessment Vital Signs Temp Pulse Resp BP Pulse Ox 08/16/19 15:49 36.4 C L 52 L 16 118/71 98 08/16/19 15:25 47 L 16 114/62 95 08/16/19 15:20 48 L 16 117/63 94 08/16/19 15:15 36.5 C 47 L 16 94/74 L 96 08/16/19 15:10 36.5 C 47 L 16 94/74 L 98 08/16/19 11:09 36.5 C 50 L 16 161/68 H 98 Recovery Score Activity: Moves 4 extremities Respiration: Deep Breath/Cough Circulation: +/-20% PreAnes Value Consciousness: Fully Awake Oxygen Saturation: > 92% On Room Air Post Anesthesia Score: 10 Discharge Sedation Level of Care: Fast Track Phase II Post Sedation Plan On clinical assessment, the patient appears to have tolerated the sedation without complications. Patient is recovering as anticipated. Patient will continue to be monitored by nursing and may be discharged when sedation discharge criteria are met per below protocol. Upon Completions of procedure and additional 15 minutes continue every 5 minute vital signs and the P.A.R. score; then discharge to a Phase I or Fast Track to Phase II per the following guidelines: * Discharge Patient to appropriate Phase II area if PAR is 8 or greater or ret urn to pre- procedure baseline. The post - procedure orders will be as directed. * If PAR score is less than 8 or not return to pre-procedure baseline then patient will follow Phase I monitoring till PAR is reached for Phase II. The Phase I may be done in procedure room or may call to secure a Phase I area. * If naloxone or flumazenil are used for reversal, hold in Phase I for continued monitoring from when last reversal dose was given for a minimum of 60 minutes or longer pending the nurse and/or physician discretion of patient condition before discharge to Phase II. Please call the Sedation Physician to re-evaluate and complete post-note for discharge to Phase II area. Do NOT discharge from procedure sedation or Phase 1 until post- sedation evaluation note is complete by procedure /sedation MD Sedation Discharge Instructions to be given to the patient at discharge to home.
[2019-08-16] MEDS ORDERED: Nursing to Pharmacy Communication ONE (16:50)
[2019-08-17] MEDS ORDERED: CHOLECALCIFEROL 1,000 UNITS TAB PO SCH (09:00)
[2019-08-17] MEDS ORDERED: CALCIUM CARBONATE 1250MG TAB PO SCH ×2 (09:00)
[2019-08-17] MEDS ORDERED: LORATADINE 10 MG TAB PO SCH (09:00)
[2019-08-17] MEDS ORDERED: MULTIVITAMIN TAB PO SCH (09:00)
[2019-08-17] MEDS ORDERED: METFORMIN HCL ER 500 MG TABCR PO SCH (09:00)
[2019-08-17] MEDS ORDERED: OMEGA-3 (PURIFIED FISH OIL) 1 GM CAP PO SCH (09:00)
[2019-08-17] MEDS ORDERED: PANTOprazole 40 MG TAB PO SCH (09:00)
[2019-08-17] MEDS ORDERED: NON-FORMULARY MEDICATION (Lutein 6 MG) PO SCH (09:00)
--- NOTE | 2019-08-17 09:42 | Cardiology Progress Note ---
Date of Service August 17, 2019 Assessment & Plan (1) Atrial flutter, paroxysmal: He is doing well following flutter ablation, his catheter insertion site in the right groin looks good, his electrocardiogram looks good and he has had no abnormalities on telemetry. He is stable for discharge. I will restart Eliquis this evening, I am going to discontinue his metoprolol to help with his bradycardia. Subjective He is feeling well today, he has no chest discomfort, no difficulty with exertion and no right groin discomfort. Physical Exam Physical Exam: Constitutional: Alert, cooperative and in no distress. Pulmonary: Clear to auscultation bilaterally. Cardiac: Regular slightly slow rhythm with no murmur, gallop or rub. Abdomen: Soft, nontender with normal bowel sounds. Extremities: No edema. Skin: No rash, ecchymoses or petechiae. Right groin: Slight bleeding on the dressing, appears predominantly dried. No active bleeding. No hematoma. Results & Data Vital Signs (Past 12 Hours) Vital Signs Temp Pulse Pulse Resp BP Pulse Ox 08/17/19 07:48 36.6 C 56 L 18 116/77 95 08/17/19 07:30 50 L 08/17/19 03:21 36.9 C 48 L 18 116/67 97 08/16/19 23:10 36.9 C 50 L 18 116/62 97 Diagnostic Findings Telemetry: Sinus bradycardia, slight increase in heart rate since yesterday. No atrial arrhythmias of significance. Postop EKG, sinus bradycardia with normal ID interval. PG Care Time/CCT Total # of Minutes Spent Total Time Spent with Patient: Total time spent is greater than 50% in coordination of care (as documented) at patient's floor/unit and/or counseling patient:
--- NOTE | 2019-08-17 09:48 | Discharge Summary ---
Date of Service August 17, 2019 Admission HPI Per Admitting Provider This is a 74-year-old male with documented typical atrial flutter, he has sinus node dysfunction and bradycardia on rate controlling medications. He has had recurrence and therefore flutter ablation was performed yesterday. Atrial fibrillation has not been identified although it is possible as he does have paroxysmal episodes which have not all been recorded. Admission Exam (Per Admitting) [facility] Mallampati Class: I Respiratory normal respiratory effort, lungs clear to auscultation Cardiovascular RRR, no murmur, no edema Discharge Data Procedures Performed Operation Date: 08/16/19 12:00 Actual Procedures p EPS + Ablation for SVT Flutter - Toby Arias MD s 3D Mapping (Carto) - Toby Arias MD Hospital Course (1) Atrial flutter, paroxysmal: He underwent successful creation of tricuspid to inferior vena caval line of electrical block on August 16, 2019, this was done without complication with good results. Atrial flutter was not induced. He is doing well following flutter ablation, his catheter insertion site in the right groin looks good, his electrocardiogram looks good and he has had no abnormalities on telemetry. He is stable for discharge. I will restart Eliquis this evening, I am going to discontinue his metoprolol to help with his bradycardia.
== END 2019-08-17 10:22 | disposition home or self-care (01) ==
LOC: EP 10:57 → 2S 10:57

== ENCOUNTER 2019-08-19 23:13 | Inpatient (IN) ==
[2019-08-19] MEDS ORDERED: SODIUM CHLORIDE 0.9% 1000ML 1,000 ML IV ONE (23:28)
[2019-08-19] MEDS ORDERED: METOPROLOL TARTRATE 1 MG/ML VIAL IV STA (23:28)
[2019-08-19 23:48] LABS: Basophils # (auto) 0.01 K/uL (0-0.2); Basophils % (auto) 0.1 %; Eosinophils # (auto) 0.16 K/uL (0-0.5); Eosinophils % (auto) 2.2 %; Hematocrit (blood only) 46.8 % (42-52); Immature Granulocytes # (auto) 0.01 K/uL (0.00-0.02); Immature Granulocytes % (auto) 0.1 %; Lymphocytes # (auto) 3.05 K/uL (1.2-3.4); Mean Corpuscular Hemoglobin 30.2 pg (25-34); Mean Corpuscular Hgb Conc 34.2 g/dL (32-36); Mean Corpuscular Volume 88.5 fL (80-100); Mean Platelet Volume 9.9 fL (7.4-10.4); Monocytes # (auto) 0.83 K/uL (0.11-0.59); Monocytes % (auto) 11.2 %; Neutrophils # (auto) 3.37 K/uL (1.4-6.5); Neutrophils % (auto) 45.4 %; Platelet Count 232 K/uL (130-400); RDW Coefficient of Variation 13.1 % (11.5-14.5); RDW Standard Deviation 42.5 fL (36.4-46.3); Red Blood Count 5.29 M/uL (4.7-6.1); White Blood Count 7.43 K/uL (4.8-10.8)
[2019-08-20] LABS: Partial Thromboplastin Time 25.8 Seconds (21.0-31.0); Prothrombin Time 9.9 Seconds (9.0-12.0)
[2019-08-20 00:07] LABS: BUN Creatinine Ratio 14.6 (10-20); Calcium 9.9 mg/dl (8.5-10.1); Creatinine Clr Calc Pharmacy 63.1 ml/min; Est GFR (African American) 75.9; Est GFR (Non-African American) 65.5
[2019-08-20 00:23] LABS: Thyroid Stimulating Hormone 2.38 uIu/ml (0.300-4.500); Troponin I 0.064 ng/ml (0-0.045)
[2019-08-20] MEDS ORDERED: ASPIRIN 81 MG CHEW PO STA (00:36)
[2019-08-20] MEDS ORDERED: ONDANSETRON INJ 2 MG/ML 2 ML VIAL IV PRN (02:42)
[2019-08-20] MEDS: NSS + 20MEQ KCL 20 MEQ/1,000 ML BAG IV SCH ×2 (03:26→14:11)
--- NOTE | 2019-08-20 05:47 | History & Physical Report ---
Date of Service August 20, 2019 Assessment & Plan (1) Atrial fibrillation and flutter: Patient status post atrial flutter ablation on 08/16/2019. Developed atrial fibrillation today, as he was warned he might by Dr. Wong The patient will be admitted to telemetry for serial cardiac enzymes, serial EKG's, cardiac rhythm monitoring. He did receive Lopressor 5 mg IV x1 by the ED. Heart rate is been remaining in the 60s to 70s at this time with good blood pressure. Hold Eliquis until assessed by cardiology. The patient was told by Dr. Wong that if he had atrial fibrillation develop, and needed Lopressor to control rate, that he would likely need a pacer placed to prevent bradycardia. Present on Admission?: Yes (2) Esophageal reflux: Change omeprazole to pantoprazole per formulary interchange Present on Admission?: Yes (3) On anticoagulant therapy: Holding Eliquis as noted above. If no immediate plans for pacemaker placement today, will place on heparin IV. Present on Admission?: Yes (4) Type 2 diabetes mellitus: Hold metformin. Placed on Accu-Cheks before meals and at bedtime with NovoLog coverage per scale Present on Admission?: Yes History of Present Illness Chief Complaint: The patient presents to the emergency department with palpitations that he was warned could be atrial fibrillation. Primary Care Provider: Yanique Jaimes MD The patient is a 74-year-old male status post atrial flutter ablation during hospitalization from -08/17/19. He has continued on Eliquis as directed. He was seen in the outpatient office earlier in the day on 08/19 by his PCP, was advised that he should present to the cardiology office or emergency department if he felt any return of symptoms, which he did this evening. He also has some facial flushing sensation and feelings of warmth. He has no other complaints. Allergies Allergy/AdvReac Type Severity Reaction Status Date / Time bee venom protein (honey bee) Allergy Severe SOB, Verified 08/19/19 23:38 SEVERE SWELLING Iodinated Contrast Media Allergy Intermediate Redness of Verified 08/19/19 23:38 Skin mold Allergy Mild itchy Verified 08/19/19 23:38 watery eyes Dust Allergy Mild itcy Uncoded 08/19/19 23:38 watery eyes Home Medications Home Medications Medication Instructions Recorded Confirmed Type loratadine [Claritin] 10 mg PO DAILY 10/20/18 08/19/19 History lutein 6 mg PO DAILY 10/20/18 08/19/19 History omega [id number]-fish oil [Fish Oil] 1 tab PO DAILY 10/20/18 08/19/19 History Eliquis 5 mg PO BID 01/11/19 08/19/19 History epinephrine [EpiPen] 0.3 mg IM UD PRN 01/11/19 08/19/19 History calcium carbonate 500 mg calcium 500 mg PO DAILY 06/23/19 08/19/19 History (1,250 mg) tablet cholecalciferol (vitamin D3) 1,000 1,000 unit PO DAILY 06/23/19 08/19/19 History unit capsule multivitamin 1 tab PO DAILY 06/23/19 08/19/19 History omeprazole 20 mg capsule,delayed 20 mg PO DAILY #90 cap 06/27/19 08/19/19 Rx release melatonin 5 mg capsule 5 mg PO HS 08/19/19 08/19/19 History metformin 750 mg PO QAM 08/19/19 08/19/19 History Past Med/Surg History Medical History Atrial flutter Diabetes (Chronic) Surgical History S/P hernia repair S/P shoulder surgery Family History Sister Breast cancer Mother Stomach cancer Brother Pneumonia Other Diabetes Gallbladder disease Heart disease Social History Preferred Language: Swedish Communication Ability: Effective Police Liaison Officer Required: No Beliefs That Will Affect Care: None Current Living Situation: Spouse current occupational status: retired Feels Safe at Home: Yes Safety Concerns: Feels Safe At This Time Smoking Status: Former smoker Second Hand Exposure: No ; Hx Alcohol Use: Yes Alcohol type: beer Hx Substance Use: No Seatbelt Use: always Review of Systems Review of Systems: The patient denies chest pain, shortness of breath, dyspnea on exertion, cough, lower extremity swelling, sore throat, fevers, chills, sweats, weight change, fatigue, nausea, vomiting, diarrhea , constipation, abdominal pain, pelvic pain, blood in urine or stool, dysuria, urinary frequency or urgency, lightheadedness, dizziness, headache, memory loss, loss of consciousness, rash, imbalance, focal or generalized weakness, numbness or tingling in arms or legs, generalized arthralgias or myalgias, back or neck pain, or night sweats. The review of systems is otherwise negative other than for that already noted above, and at least 10 systems have been reviewed. Physical Exam Physical Exam: The patient is awake, alert and oriented 3, well developed and well nourished, normocephalic and atraumatic, lying in bed and in no acute distress. HEENT--PERRL, EOMI, mucous membranes and oropharynx normal. Neck--supple. No JVD. No bruits. Thyroid normal, trachea midline, no adenopathy. Heart--normal S1 and S2. No murmurs, rubs or gallops. Lungs--clear bilaterally, no respiratory distress, no accessory muscle use. Abdomen--normal bowel sounds and soft. Nontender. Nondistended. Extremities--no cyanosis or clubbing. No edema. There are good distal pulses b/l. Dermatologic--normal skin turgor. Mild facial flushing. Neurologic--cranial nerves II through XII grossly intact. Rheumatologic--normal range of motion. Psychiatric--normal affect. Results & Data Vital Signs (Past 12 Hours) Vital Signs Temp Pulse Pulse Resp BP BP BP 08/20/19 04:39 98.2 F 54 L 18 130/75 08/20/19 02:30 97.3 F L 64 20 139/78 08/20/19 02:00 58 L 20 116/69 08/20/19 01:31 62 19 130/62 08/20/19 01:30 62 20 08/20/19 01:00 63 20 159/88 H 08/20/19 00:30 63 22 136/74 08/20/19 00:00 66 26 H 149/83 H 08/19/19 23:38 69 20 139/73 08/19/19 23:17 97.5 F L 99 H 18 140/91 Pulse Ox 08/20/19 04:39 97 08/20/19 02:30 97 08/20/19 02:00 96 08/20/19 01:31 97 08/20/19 01:30 95 08/20/19 01:00 98 08/20/19 00:30 98 08/20/19 00:00 98 08/19/19 23:38 98 08/19/19 23:17 97 Laboratory Results Laboratory Results WBC 7.43 K/uL (4.8-10.8) 08/19/19 23:36 RBC 5.29 M/uL (4.7-6.1) 08/19/19 23:36 Hgb 16.0 g/dL (14.0-18.0) 08/19/19 23:36 Hct 46.8 % (42-52) 08/19/19 23:36 MCV 88.5 fL (80-100) 08/19/19 23:36 MCH 30.2 pg (25-34) 08/19/19 23:36 MCHC 34.2 g/dL (32-36) 08/19/19 23:36 RDW Std Deviation 42.5 fL (36.4-46.3) 08/19/19 23:36 RDW Coeff of Jeremy 13.1 % (11.5-14.5) 08/19/19 23:36 Plt Count 232 K/uL (130-400) 08/19/19 23:36 MPV 9.9 fL (7.4-10.4) 08/19/19 23:36 Immature Gran % (Auto) 0.1 % 08/19/19 23:36 Neut % (Auto) 45.4 % 08/19/19 23:36 Lymph % (Auto) 41.0 % 08/19/19 23:36 [place] % (Auto) 11.2 % 08/19/19 23:36 Eos % (Auto) 2.2 % 08/19/19 23:36 Baso % (Auto) 0.1 % 08/19/19 23:36 Immature Gran # (Auto) 0.01 K/uL (0.00-0.02) 08/19/19 23:36 Neut # (Auto) 3.37 K/uL (1.4-6.5) 08/19/19 23:36 Lymph # (Auto) 3.05 K/uL (1.2-3.4) 08/19/19 23:36 [place] # (Auto) 0.83 K/uL (0.11-0.59) H 08/19/19 23:36 Eos # (Auto) 0.16 K/uL (0-0.5) 08/19/19 23:36 Baso # (Auto) 0.01 K/uL (0-0.2) 08/19/19 23:36 PT 9.9 Seconds (9.0-12.0) 08/19/19 23:36 INR 1.0 (0.9-1.1) 08/19/19 23:36 APTT 25.8 Seconds (21.0-31.0) 08/19/19 23:36 PTT Ratio 1.0 08/19/19 23:36 Sodium 141 mmol/L (136-145) 08/19/19 23:36 Potassium 4.0 mmol/L (3.5-5.1) 08/19/19 23:36 Chloride 105 mmol/L (98-107) 08/19/19 23:36 Carbon Dioxide 30 mmol/L (21-32) 08/19/19 23:36 Anion Gap 6.0 (3-11) 08/19/19 23:36 BUN 16 mg/dl (7-18) 08/19/19 23:36 Creatinine 1.11 mg/dl (0.6-1.4) 08/19/19 23:36 Est Cr Clr Drug Dosing 63.1 ml/min 08/19/19 23:36 Est GFR ( Amer) 75.9 08/19/19 23:36 Est GFR (Non-Af Amer) 65.5 08/19/19 23:36 BUN/Creatinine Ratio 14.6 (10-20) 08/19/19 23:36 Glucose 114 mg/dl (70-99) H 08/19/19 23:36 Calcium 9.9 mg/dl (8.5-10.1) 08/19/19 23:36 Magnesium 2.0 mg/dl (1.8-2.4) 08/19/19 23:36 Troponin I 0.059 ng/ml (0-0.045) H* 08/20/19 03:01 TSH 2.380 uIu/ml (0.300-4.500) 08/19/19 23:36 Code Status & VTE Plan Code Status Full code VTE Prophylaxis Plan VTE Prophylaxis will be ordered: Yes PG Care Time/CCT Total # of Minutes Spent Total Time Spent with Patient: Total time spent is greater than 50% in coordination of care (as documented) at patient's floor/unit and/or counseling patient:
--- NOTE | 2019-08-20 05:50 | Emergency Department Note ---
Entered by Black Swenson acting as a scribe for Lucho Miller MD ED Provider Note Name: Juanito Elliott Age: 74 Arrives Via: Triage Informant: Self CC: Chest pain HPI: 74 y/o male arrives for evaluation of constant, chest pressure beginning one hour ago. The patient states a history of a-flutter since October, and he has a history of similar symptoms. He reports he is not sure if he has a history of a-fib despite having a negative 24 hour Holter Monitor. The patient notes he had an ablation on Thursday by Dr. Arias in hopes of taking the patient of his Metoprolol permanently and raise his pulse that is normally in the 40s. He states he has resumed his Eliquis two night ago but has not started taking his Metoprolol again. The patient reports he is normally active and had a normal day today. He denies a history of an VA or catheterization. The patient notes his ablation did not rule out a pacemaker. He states he also has mild head pressure and tingling in his right hand. The patient denies abdominal pain, back pain, and swelling in his legs. Review of EMR shows the patient was evaluated on July 27 and had a Dobutamine stress test that showed no induced ischemia and an EF of 60-65%. ROS: See above HPI for pertinent positives & negatives. A total of 10 systems reviewed and were otherwise negative. Past Medical History: a-flutter, DM Past Surgical History: hernia repair, shoulder surgery Family History: DM gallbladder disease, heart disease, breast cancer, pneumonia Social History: lives with Home Medications: Eliquis, Metoprolol Allergies IV contrast Physical: Vitals: BP 140/91, Pulse 99, Resp 18, Temp 97.5 F, O2Sat 97 on RA. Exam: GENERAL: Patient is uncomfortable appearing and in mild distress. EYES: No scleral icterus, unremarkable pupils. ENT: Mucous membranes moist, no nasal congestion. NECK: No masses appreciated, no meningismus, trachea is midline. RESPIRATORY: No dyspnea. Clear to auscultation and equal bilaterally. No wheeze, no rhonchi. CARDIOVASCULAR: Mildy tachycardic rate and irregular rhythm. No murmurs, rubs, gallops appreciated. GASTROINTESTINAL: Abdomen soft, non-tender, no peritonitis. Bowel sounds positive. No masses appreciated. BACK: No midline tenderness, no CVA tenderness EXTREMITIES: Normal motion all extremities, no cyanosis, no edema. NEUROLOGIC: Alert and oriented, no acute motor or sensory deficits, no focal weakness, cranial nerves grossly intact. SKIN: No rash, no jaundice, no diaphoresis. ED Course: Prior Medical Record, Triage/Nursing Notes, Medications, Allergies reviewed by Me Vital Signs: reviewed and remarkable for mild tachy Labs: Reviewed and remarkable for +trop Interventions: Saline Lock, NSS bolus 1 L IV Imaging: X ray results are stated below per my interpretation: Chest: 1 view: No infiltrate, no effusion, normal cardiac border. EKG #1: Per My Interpretation: Indication Palpitations: Afib [address] depressions, no stemi, wavy baselin though not quite flutter waves. QTC 428. Afib new compared to NSR in 08/16/19 EKG EKG #2: Per My Interpretation: Indication Rate Change: NSR 67 bpm no ectopy no ischemia qtc 407. No stemi. When compared to earlier ekg no longer in afib. Reassessments/Times: 2325: Past medical records reviewed. The patient was evaluated in room B02. A complete history and physical exam was performed. 2341: The patient's hear rate is down to the 60s after IV fluids. The Lopressor was held and a repeat EKG was obtained. 0003: The patient is in a NSR and no distress. 0035: I discussed the patient's case Dr. Mustafa, Cardiology. He recommends the patient receive a full dose of aspirin and hold off on Heparin for now. The patient should have a hospitalist evaluation for repeat evaluation. 0041: Upon reevaluation, the patient is resting comfortably. I discussed laboratory and radiographic results with him. He verbalized agreement of the treatment plan. The patient will be evaluated for further management and care. 0043: I reviewed the patient's case with Dr. Pearce, [facility]. He will evaluate the patient for further management. Blood pressure: Normal. No Referral necessary Disposition: Hospitalization Differentials: NSR, SVT, PACs, PVCs, Cardiac Dysrhythmia, Endocrine Dysfunction, Electrolyte/Metabolic Abnormality, Pulmonary Embolism, Infectious, GI, amongst other pathologies Entertained. Medical Decision Makin yr old male arrives in new onset AFib though well known aflutter and just had ablation for aflutter. Having new substernal chest pressure. IV obtained and fluids started and he converted to NSR. CXR OK. EKG repeat OK. Trop is elevated. Query recent ablation vs acs vs demand as cause. I do not feel this represents Dissection and PE seems less likely as well. Already took his eliquis tonight. ASA given. Cardiology on board with plan to bring in and will hold off on heparin for now. Patient stable without further complaints. Hospitalist consulted and will bring patient in. Impression: Atrial Fibrillation Substernal Chest Pain Elevated Troponin. Lucho Miller MD The scribe's documentation has been prepared under my direction and personally reviewed by me in its entirety. I confirm that the note above accurately reflects all work, treatment, procedures, and medical decision making performed by me. Impression & Plan Atrial fibrillation, Substernal chest pain, Elevated troponin Past Med/Surg History Medical History Atrial flutter Diabetes (Chronic) Surgical History S/P hernia repair S/P shoulder surgery Family History Sister Breast cancer Mother Stomach cancer Brother Pneumonia Other Diabetes Gallbladder disease Heart disease Social History Preferred Language: Jamaican Communication Ability: Effective Research And Development Engineer Required: No Beliefs That Will Affect Care: None Current Living Situation: Spouse current occupational status: retired Feels Safe at Home: Yes Safety Concerns: Feels Safe At This Time Smoking Status: Former smoker Second Hand Exposure: No ; Hx Alcohol Use: Yes Alcohol type: beer Hx Substance Use: No Seatbelt Use: always Results & Data Vital Signs Vital Signs - 24 hr 08/19/19 23:17 08/19/19 23:38 08/20/19 00:00 Temperature 36.4 C L Temperature Source Oral Pulse Rate 99 H 69 66 Pulse Rate from SpO2 Sensor 70 66 Respiratory Rate 18 20 26 H Respiratory Depth Normal Blood Pressure 140/91 139/73 149/83 H Blood Pressure Mean 107 99 89 Pulse Oximetry 97 98 98 Oxygen Delivery Method Room Air Room Air Room Air Sepsis Recent Fever Within 48 Hours No Sepsis Action Taken by Nursing No Action Required 08/20/19 00:30 08/20/19 01:00 08/20/19 01:30 Temperature Temperature Source Pulse Rate 63 63 62 Pulse Rate from SpO2 Sensor 64 64 64 Respiratory Rate 22 20 20 Respiratory Depth Blood Pressure 136/74 159/88 H Blood Pressure Mean 80 104 Pulse Oximetry 98 98 95 Oxygen Delivery Method Room Air Room Air Sepsis Recent Fever Within 48 Hours Sepsis Action Taken by Nursing 08/20/19 01:31 Temperature Temperature Source Pulse Rate 62 Pulse Rate from SpO2 Sensor 63 Respiratory Rate 19 Respiratory Depth Blood Pressure 130/62 Blood Pressure Mean 74 Pulse Oximetry 97 Oxygen Delivery Method Room Air Sepsis Recent Fever Within 48 Hours Sepsis Action Taken by Nursing Laboratory Data Result diagrams: 08/19/19 23:36 08/19/19 23:36 Lab Results 08/19/19 08/19/19 08/19/19 Range/Units 23:36 23:36 23:36 WBC 7.43 (4.8-10.8) K/uL RBC 5.29 (4.7-6.1) M/uL Hgb 16.0 (14.0-18.0) g/dL Hct 46.8 (42-52) % MCV 88.5 (80-100) fL MCH 30.2 (25-34) pg MCHC 34.2 (32-36) g/dL RDW Std Deviation 42.5 (36.4-46.3) fL RDW Coeff of Jeremy 13.1 (11.5-14.5) % Plt Count 232 (130-400) K/uL MPV 9.9 (7.4-10.4) fL Immature Gran % (Auto) 0.1 % Neut % (Auto) 45.4 % Lymph % (Auto) 41.0 % [place] % (Auto) 11.2 % Eos % (Auto) 2.2 % Baso % (Auto) 0.1 % Immature Gran # (Auto) 0.01 (0.00-0.02) K/uL Neut # (Auto) 3.37 (1.4-6.5) K/uL Lymph # (Auto) 3.05 (1.2-3.4) K/uL [place] # (Auto) 0.83 H (0.11-0.59) K/uL Eos # (Auto) 0.16 (0-0.5) K/uL Baso # (Auto) 0.01 (0-0.2) K/uL PT 9.9 (9.0-12.0) Seconds INR 1.0 (0.9-1.1) APTT 25.8 (21.0-31.0) Seconds PTT Ratio 1.0 Sodium 141 (136-145) mmol/L Potassium 4.0 (3.5-5.1) mmol/L Chloride 105 (98-107) mmol/L Carbon Dioxide 30 (21-32) mmol/L Anion Gap 6.0 (3-11) BUN 16 (7-18) mg/dl Creatinine 1.11 (0.6-1.4) mg/dl Est Cr Clr Drug Dosing 63.1 ml/min Est GFR ( Amer) 75.9 Est GFR (Non-Af Amer) 65.5 BUN/Creatinine Ratio 14.6 (10-20) Glucose 114 H (70-99) mg/dl Calcium 9.9 (8.5-10.1) mg/dl Magnesium 2.0 (1.8-2.4) mg/dl Troponin I 0.064 H* (0-0.045) ng/ml TSH 2.380 (0.300-4.500) uIu/ml Administered Medications Potassium Chloride/Sodium Chloride (Normal Saline W/20 Meq Kcl) 20 meq in 1,000 mls @ 100 mls/hr IV .Q10H SAFIA Stop: 09/19/19 02:59 Last Admin: 08/20/19 03:26 Dose: 100 mls/hr Documented by: [id number] Discontinued Medications Aspirin (Aspirin Chew) 324 mg PO NOW STA Stop: 08/20/19 00:37 Last Admin: 08/20/19 00:44 Dose: 324 mg Documented by: [id number] Sodium Chloride (Nss 1000ml) 1,000 mls @ 999 mls/hr IV .Q1H1M ONE Stop: 08/20/19 00:28 Last Infusion: 08/20/19 00:44 Dose: 0 mls/hr Documented by: [id number] Admin: 08/19/19 23:45 Dose: 999 mls/hr Documented by: [id number] Metoprolol Tartrate (Lopressor) 5 mg IV NOW STA Stop: 08/19/19 23:29 Last Admin: 08/20/19 03:26 Dose: Not Given Documented by: [id number] Discharge Plan Visit Data *Final* Discharge Date/Time: 08/20/19 02:09 Chief Complaint: Chest Pain Stated Complaint: SEVERE CHEST PAIN, CARDIAC HISTORY ED Provider: Lucho Miller Discharge Problem: Atrial fibrillation, Substernal chest pain, Elevated troponin Patient Disposition: Admitted As Inpatient Discharge Instructions Interventions: ED Discharge Assessment Last Done: 08/20/19 02:09 The scribe's documentation has been prepared under my direction and personally reviewed by me in its entirety. I confirm that the note above accurately reflects all work, treatment, procedures, and medical decision making performed by me.
--- NOTE | 2019-08-20 08:22 | XRay Report ---
XR chest 1V portable HISTORY: Arrythmia COMPARISON: Chest 01/11/2019. FINDINGS: The heart is normal in size. A few left basilar linear densities favor subsegmental atelect asis. The lungs are otherwise clear. No pleural effusions. No pneumothorax. IMPRESSION: No acute process. Electronically signed by: Que Claudio M.D. 08/20/2019 8:21 AM
[2019-08-20 12:17] VITALS: O2SAT 97
[2019-08-20] MEDS ORDERED: PANTOprazole 40 MG TAB PO ONE (12:34)
--- NOTE | 2019-08-20 16:11 | Cardiology Consultation ---
Date of Consultation August 20, 2019 Assessment & Plan (1) Paroxysmal atrial fibrillation: (2) Atrial flutter, paroxysmal: (3) S/P ablation of atrial flutter: (4) On anticoagulant therapy: ASSESSMENT/PLAN: 1. Paroxysmal atrial fibrillation: Initial ECG appears to demonstrate atrial fibrillation. He underwent atrial flutter ablation earlier this week. We discussed treatment strategies. There is concern for tachy-sebastian syndrome but he did tolerate metoprolol succinate 25 mg daily. Although this does did not improve symptoms with atrial flutter, it may offer more benefit with atrial fibrillation. He was agreeable to restart metoprolol succinate 25 mg daily. Monitor for bradycardia. Could also consider flecainide as he has had recent negative ischemic evaluation. Continue anticoagulation for stroke risk reduction. 2. Atrial flutter status post ablation: Continue to follow with Dr. Arias. 3. Elevated troponin: Troponin peaked at 0.064. This may have been due to tachyarrhythmia. Cannot rule out some minimal degree of troponin elevation with ablation which was performed only a few days ago. His chest pain persisted for over an hour and only occurred with his palpitations and completely resolved with conversion to sinus rhythm. Recent negative dobutamine stress echo. He did not present with acute coronary syndrome. 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 No urgent indication for pacemaker at this time. Resuming low-dose beta-neha which was tolerated. Monitor closely. Follow up with Dr. Arias. 5. Disposition: Can be discharged home from a cardiology standpoint. Recommend close follow-up with Dr. Arias. Plan of care discussed with Dr. Adhikari, primary hospitalist service. Greater than 40 minute spent, with greater than 50% of that time spent counseling patient and coordinating care. Thank you for allowing me to participate in the care of your patient. Please call for any other questions or concerns. Sincerely, Koko Cruz M.D. (5) Elevated troponin: (6) Sick sinus syndrome: History of Present Illness Reason for Consultation: Atrial fibrillation and concern for tachy-sebastian syndrome Requesting Physician: Dr. Pearce Attending Physician: Ricci Adhikari MD History of Present Illness Mr. 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 His primary wig sales consultant is Dr. Arias. He underwent atrial flutter ablation on 08/16/2019. he was very symptomatic when in atrial flutter and on metoprolol succinate 25 mg daily, he continued to have symptoms. He tolerated metoprolol succinate 25 mg with heart rates in the 50s. It was then up titrated to 50 mg daily and he became very tired and had heart rates mostly in the 40s. Beta-neha was then discontinued following ablation. Last night, he developed palpitations that felt more uncomfortable than atrial flutter symptoms. They are very strong palpitations as though his heart was racing and it caused him to be short of breath. He also developed substernal chest pressure that persisted for greater than 1 hour. His symptoms completely resolved when he was found to spontaneously convert at 11:31 p.m. while in the ER. Since then, he has had occasional palpitations which he describes as a quick irregularity but this did not correlate with any arrhythmia on monitor. He denies syncope, near-syncope, edema, or bleeding such as melena, hematochezia, or hematuria. He is very active and walks and does so without exertional symptoms such as chest pain or shortness of breath. In the emergency department he was found to be in atrial fibrillation, although heart rates were not significantly elevated or if so, not for prolonged duration. Review of systems: As above. Review of systems otherwise negative/unremarkable. Family history: Father had a arrhythmia in his 80s. Social history: Denies tobacco or alcohol abuse. No drugs. . His is at the bedside. Three children. Grandchildren. Allergies Allergy/AdvReac Type Severity Reaction Status Date / Time bee venom protein (honey bee) Allergy Severe SOB, Verified 08/19/19 23:38 SEVERE SWELLING Iodinated Contrast Media Allergy Intermediate Redness of Verified 08/19/19 23:38 Skin mold Allergy Mild itchy Verified 08/19/19 23:38 watery eyes Dust Allergy Mild itcy Uncoded 08/19/19 23:38 watery eyes Home Medications Home Medications Medication Instructions Recorded Confirmed Type loratadine [Claritin] 10 mg PO DAILY 10/20/18 08/19/19 History lutein 6 mg PO DAILY 10/20/18 08/19/19 History omega 5-oxl-rpt-fish oil [Fish Oil] 1 tab PO DAILY 10/20/18 08/19/19 History Eliquis 5 mg PO BID 01/11/19 08/19/19 History epinephrine [EpiPen] 0.3 mg IM UD PRN 01/11/19 08/19/19 History calcium carbonate 500 mg calcium 500 mg PO DAILY 06/23/19 08/19/19 History (1,250 mg) tablet cholecalciferol (vitamin D3) 1,000 1,000 unit PO DAILY 06/23/19 08/19/19 History unit capsule multivitamin 1 tab PO DAILY 06/23/19 08/19/19 History omeprazole 20 mg capsule,delayed 20 mg PO DAILY #90 cap 06/27/19 08/19/19 Rx release melatonin 5 mg capsule 5 mg PO HS 08/19/19 08/19/19 History metformin 750 mg PO QAM 08/19/19 08/19/19 History metoprolol succinate 25 mg PO DAILY #30 ea 08/20/19 Rx Patient History Medical History (Updated 08/20/19 @ 19:05 by Bayron Cruz MD) Atrial flutter Diabetes (Chronic) Surgical History (Updated 08/20/19 @ 16:12 by Bayron Cruz MD) S/P ablation of atrial flutter S/P hernia repair S/P shoulder surgery Family History Sister Breast cancer Mother Stomach cancer Brother Pneumonia Other Diabetes Gallbladder disease Heart disease Social History Preferred Language: Hungarian Communication Ability: Effective Environmental Sciences Professor Required: No Beliefs That Will Affect Care: None Current Living Situation: Spouse current occupational status: retired Feels Safe at Home: Yes Smoking Status: Former smoker Second Hand Exposure: No ; Hx Alcohol Use: Yes Alcohol type: beer Hx Substance Use: No Seatbelt Use: always Physical Exam Physical Exam: Gen.: No acute distress. Alert and oriented. HEENT: Anicteric sclera. Neck: No JVD. No bruits. Normal carotid upstrokes bilaterally. Cardiac: PMI was nondisplaced. No ventricular heave. Regular near 60 bpm. Normal S1-S2. No murmurs, rubs, or gallops. Pulmonary: Clear to auscultation bilaterally without wheezes, rales, or rhonchi. Abdomen: Soft, nontender, nondistended, with normoactive bowel sounds. No bruits noted. Extremities: 2+ radial pulses bilaterally. 2+ posterior tibialis pulses bilaterally. Right groin without hematoma. Ecchymosis noted at ablation access site. No edema or cyanosis. Psychiatric: Affect appears appropriate. Results & Data Vital Signs (Past 12 Hours) Vital Signs Temp Pulse Pulse Resp BP BP Pulse Ox 08/20/19 15:49 60 08/20/19 12:17 36.7 C 58 L 18 133/76 97 08/20/19 07:48 71 08/20/19 07:45 36.7 C 57 L 17 131/72 96 08/20/19 04:39 36.8 C 54 L 18 130/75 97 Laboratory Results Laboratory Results - last 24 hr 08/19/19 08/19/19 08/19/19 23:36 23:36 23:36 WBC 7.43 RBC 5.29 Hgb 16.0 Hct 46.8 MCV 88.5 MCH 30.2 MCHC 34.2 RDW Std Deviation 42.5 RDW Coeff of Jeremy 13.1 Plt Count 232 MPV 9.9 Immature Gran % (Auto) 0.1 Neut % (Auto) 45.4 Lymph % (Auto) 41.0 [place] % (Auto) 11.2 Eos % (Auto) 2.2 Baso % (Auto) 0.1 Immature Gran # (Auto) 0.01 Neut # (Auto) 3.37 Lymph # (Auto) 3.05 [place] # (Auto) 0.83 H Eos # (Auto) 0.16 Baso # (Auto) 0.01 PT 9.9 INR 1.0 APTT 25.8 PTT Ratio 1.0 Sodium 141 Potassium 4.0 Chloride 105 Carbon Dioxide 30 Anion Gap 6.0 BUN 16 Creatinine 1.11 Est Cr Clr Drug Dosing 63.1 Est GFR ( Amer) 75.9 Est GFR (Non-Af Amer) 65.5 BUN/Creatinine Ratio 14.6 Glucose 114 H POC Glucose Calcium 9.9 Magnesium 2.0 Troponin I 0.064 H* TSH 2.380 08/20/19 08/20/19 08/20/19 03:01 07:11 11:28 WBC RBC Hgb Hct MCV MCH MCHC RDW Std Deviation RDW Coeff of Jeremy Plt Count MPV Immature Gran % (Auto) Neut % (Auto) Lymph % (Auto) [place] % (Auto) Eos % (Auto) Baso % (Auto) Immature Gran # (Auto) Neut # (Auto) Lymph # (Auto) [place] # (Auto) Eos # (Auto) Baso # (Auto) PT INR APTT PTT Ratio Sodium Potassium Chloride Carbon Dioxide Anion Gap BUN Creatinine Est Cr Clr Drug Dosing Est GFR ( Amer) Est GFR (Non-Af Amer) BUN/Creatinine Ratio Glucose POC Glucose 87 88 Calcium Magnesium Troponin I 0.059 H* TSH Diagnostic Findings Telemetry personally reviewed: Converted from AFib to sinus at 11:31 p.m.. ECGs personally reviewed: ECG 08/20/2019 at 7:00 a.m.: Sinus bradycardia 53 bpm ECG 08/19/2019 at 11:23 p.m.: AFib, but sinus complexes near the end of the tracing. [address] abnormality. Dobutamine stress echo 07/27/2019: Negative stress echo and ECG 94% MPHR. EF 60-65%. Normal wall motion. Mild left atrial dilation. No significant valvular abnormalities. Medications Administered Current Inpatient Medications Apixaban (Eliquis) 5 mg PO BID SAFIA Stop: 09/19/19 20:59 Calcium Carbonate ([place] 500) 1,250 mg PO DAILY SAFIA Stop: 09/20/19 08:59 Fish Oil ([place]-3 (Purified Fish Oil)) 1 gm PO DAILY SAFIA Stop: 09/20/19 08:59 Loratadine (Claritin) 10 mg PO DAILY SAFIA Stop: 09/20/19 08:59 Metformin HCl (Glucophage) 750 mg PO QAM SAFIA Stop: 09/20/19 08:59 Multivitamins (Multivitamin Tab) 1 tab PO DAILY SAFIA Stop: 09/20/19 08:59 Ondansetron HCl (Zofran) 4 mg IV Q6H PRN PRN Reason: Nausea Stop: 09/19/19 02:41 Vitamin D (Vitamin D3) 1,000 units PO DAILY SAFIA Stop: 09/20/19 08:59 PG Care Time/CCT Total # of Minutes Spent Total Time Spent with Patient: Total time spent is greater than 50% in coordination of care (as documented) at patient's floor/unit and/or counseling patient:
[2019-08-20 16:21] VITALS: PULSE 59; TEMP 97.7
[2019-08-20 17:43] VITALS: BP 131/72
--- NOTE | 2019-08-20 18:10 | Discharge Summary ---
Date of Service August 20, 2019 Admission HPI Per Admitting Provider The patient is a 74-year-old male status post atrial flutter ablation during hospitalization from -08/17/19. He has continued on Eliquis as directed. He was seen in the outpatient office earlier in the day on 08/19 by his PCP, was advised that he should present to the cardiology office or emergency department if he felt any return of symptoms, which he did this evening. He also has some facial flushing sensation and feelings of warmth. He has no other complaints. Discharge Data Allergies Allergy/AdvReac Type Severity Reaction Status Date / Time bee venom protein (honey bee) Allergy Severe SOB, Verified 08/19/19 23:38 SEVERE SWELLING Iodinated Contrast Media Allergy Intermediate Redness of Verified 08/19/19 23:38 Skin mold Allergy Mild itchy Verified 08/19/19 23:38 watery eyes Dust Allergy Mild itcy Uncoded 08/19/19 23:38 watery eyes Consultations 08/20/19 00:36 ED Decision to Admit Stat 08/20/19 02:42 Consult Cardiology Routine Consult Case Management - Discharge Planning Routine Hospital Course (1) Atrial fibrillation and flutter: Patient status post atrial flutter ablation on 08/16/2019. Developed atrial fibrillation today, as he was warned he might by Dr. Wong The patient will be admitted to telemetry for serial cardiac enzymes, serial EKG's, cardiac rhythm monitoring. He did receive Lopressor 5 mg IV x1 by the ED. Heart rate is been remaining in the 60s to 70s at this time with good blood pressure. Hold Eliquis until assessed by cardiology. The patient was told by Dr. Wong that if he had atrial fibrillation develop, and needed Lopressor to control rate, that he would likely need a pacer placed to prevent bradycardia. (2) Esophageal reflux: Change omeprazole to pantoprazole per formulary interchange (3) On anticoagulant therapy: Holding Eliquis as noted above. If no immediate plans for pacemaker placement today, will place on heparin IV. (4) Type 2 diabetes mellitus: Hold metformin. Placed on Accu-Cheks before meals and at bedtime with NovoLog coverage per scale Discharge Plan Discharge Items Patient Disposition: Home - Self-Care Reason For Visit: Chest pain Discharge Diagnosis: Paroxysmal atrial flutter Condition on Discharge: Good Activity: Per Instructions section Lifting: Wait until after follow-up appointment Non-emergency contact: Lap Cutter Truer Operator Call non-emergency contact if: you have any medication questions and your symptoms worsen Follow-up/Referrals: Toby Arias MD [Physician] - (as previously arranged) Yanique Jaimes MD [Primary Care Provider] - Diet: Carb Consistent or DM2 and Heart Healthy Addtl Attending Provider Instructions: You were admitted overnight at [facility] due to atrial flutter. This converted to a normal sinus rhythm in the emergency room with IV medication. You are now back in a normal rhythm and medically stable for discharge. Seen by cardiology and recommended going back on a smaller dose of metoprolol as prescribed below. Please follow up with Dr Arias as previously arranged. If you have further similar chest pain please return to the ER immediately. Please do not perform any strenuous activity until your follow up with Dr Arias. Kind regards, Dr Ricci Adhikari Pending Studies at Discharge: No Stand-Alone Forms: My [facility], Smoking Cessation Medications and DC Order Prescriptions: New metoprolol succinate 25 mg capsule,sprinkle,ER 24hr 25 mg PO DAILY Qty: 30 RF: 0 Continued omeprazole 20 mg capsule,delayed release(DR/EC) 20 mg PO DAILY Qty: 90 RF: 3 melatonin 5 mg capsule 5 mg PO HS RF: 0 lutein 6 mg Capsule 6 mg PO DAILY RF: 0 loratadine [Claritin] 10 mg Tablet 10 mg PO DAILY RF: 0 omega 3-ghx-cnv-fish oil [Fish Oil] 1,000 mg (120 mg-180 mg) Capsule 1 tab PO DAILY RF: 0 cholecalciferol (vitamin D3) [Vitamin D3] 1,000 unit capsule 1,000 unit PO DAILY RF: 0 calcium carbonate [Calcium 500] 500 mg calcium (1,250 mg) tablet 500 mg PO DAILY RF: 0 multivitamin tablet 1 tab PO DAILY RF: 0 Eliquis 5 mg tablet 5 mg PO BID RF: 0 epinephrine [EpiPen] 0.3 mg/0.3 mL Auto-Injector 0.3 mg IM UD PRN (Reason: Allergic Reaction) RF: 0 metformin 750 mg tablet extended release 24 hr 750 mg PO QAM RF: 0 Discharge Orders: Discharge Order (Routine); Ordered 11/16/19 Ordered By: Ricci Marshall/Other Patient Handouts: AFL/Afib, Ablation Cardiac Dc, Stroke Prevent Live W Atrial Fib, Metoprolol Succinate Oral tablet extended-release Admission Data Admit Date/Time: 08/20/19 01:37 Attending Provider: Ricci Adhikari Admit Provider: Esvin Pearce Primary Care Provider: Yanique Jaimes V. Other Providers: Esvin Pearce ; Toby Arias Other Interventions: Discharge Summary Assessment (RN) Last Done: 08/20/19 17:25
[2019-08-20] MEDS ORDERED: APIXABAN 5 MG TABLET PO SCH (21:00)
[2019-08-20] MEDS ORDERED: NON-FORMULARY MEDICATION (Melatonin 5 MG) PO SCH (21:00)
[2019-08-21] MEDS ORDERED: MULTIVITAMIN TAB PO SCH (09:00)
[2019-08-21] MEDS ORDERED: METFORMIN HCL 500 MG TAB PO SCH (09:00)
[2019-08-21] MEDS ORDERED: CALCIUM CARBONATE 1250MG TAB PO SCH (09:00)
[2019-08-21] MEDS ORDERED: LORATADINE 10 MG TAB PO SCH (09:00)
[2019-08-21] MEDS ORDERED: OMEGA-3 (PURIFIED FISH OIL) 1 GM CAP PO SCH (09:00)
[2019-08-21] MEDS ORDERED: CHOLECALCIFEROL 1,000 UNITS TAB PO SCH (09:00)
[2019-08-21] MEDS ORDERED: NON-FORMULARY MEDICATION (Lutein 6 MG) PO SCH (09:00)
== END 2019-08-20 18:13 | disposition home or self-care (01) | DRG 274 ==
LOC: ED 23:13 → 2S 08-20 01:37 → SUATTDRO 08-20 01:37 → 2S 08-20 02:09